=== PATIENT | female | born 1940 ===

== ENCOUNTER → 2020-07-26 13:01 | Outpatient (BNVA) | payer MEDICARE, OTHER, SELFPAY | PROVIDERS: PCP Internal Medicine; Referring Provider Internal Medicine; Visit Provider Nurse Practitioner Family | DX: Z01.810 Encounter for preprocedural cardiovascular examination (principal); I49.8 Other specified cardiac arrhythmias; I10 Essential (primary) hypertension; R00.2 Palpitations; E78.5 Hyperlipidemia, unspecified; R94.31 Abnormal electrocardiogram [ECG] [EKG]; R07.89 Other chest pain; Z86.73 Personal history of transient ischemic attack (TIA), and cerebral infarction without residual deficits | CPT/HCPCS: 99214 ==

== ENCOUNTER → 2020-07-30 10:10 | Outpatient (REF) | payer MEDICARE, OTHER, SELFPAY ==
--- NOTE | 2020-07-30 | NM_ITS ---
Lexiscan Myocardial perfusion study Indication: Preoperative cardiovascular evaluation, hypertension, high lipids Technique: The patient was brought in for a Lexiscan perfusion study on 07/30/2020 and was injected 0.4 mg of Lexiscan intravenously. Within a minute of this injection 25 mCi of sestamibi was given intravenously. Images were obtained using the SPECT gamma camera interlaced with the gating device. Images were obtained in supine position. Resting perfusion study was performed on 07/31/2020. Patient was administered 25 mCi of sestamibi intravenously at rest. Images were then obtained in supine position. Total DLP 64mGy-cm. Images were processed with the software and compared side to side in short axis, horizontal long axis and vertical long axis views. Findings: Raw acquisition was reviewed. The stress perfusion study showed slightly decreased tracer uptake towards the apex and apical inferior wall. However, with CT attenuation correction, this seems to resolve suggesting soft tissue/diaphragmatic attenuation artifact. The gated study shows normal LV systolic function with calculated LVEF of 69%. LV cavity is normal in size. The gated study shows normal wall thickening and contraction of segments. Resting study shows no significant perfusion abnormality. Gating at rest reveals normal wall motion with ejection fraction at 74%. The findings are consistent with no reversible or fixed perfusion abnormality. Impression: 1. Myocardial perfusion imaging study shows normal myocardial perfusion. No evidence of any ischemia or infarction. 2. Gated LVEF is normal. 3. Transient ischemic dilatation not present. EKG component of the test reported separately.
--- NOTE | 2020-07-30 10:33 | CA_ITS ---
Acquisition Time: 2020-07-30 10:41:33 Total Exercise Time: 00:02:00 Test Indications: Pre-Op Evaluation Medications: Protocol: LEXISCAN Max HR: 137 BPM 96% of Pred: 142 BPM Max BP: 142/078 mmHG Max Work Load: 1.0 METS Pharmacological stress test using Lexiscan while sitting and kicking her feet. Reports chest pressure. HR up to 137. Pt took all her medications this morning. EKG without any arrhythmias, Non-diagnostic for ischemia. Nuclear images to follow. Normotensive response to test. Test reviewed with Dr. Patino Referred By: Yudith Walter Overread By: Seth Lam
== END ==
LOC: HO.CARD 10:10
PROVIDERS: PCP Internal Medicine; Visit Provider Nurse Practitioner Family
DX: Z01.810 Encounter for preprocedural cardiovascular examination (principal); R07.89 Other chest pain; I10 Essential (primary) hypertension; E78.5 Hyperlipidemia, unspecified; R94.31 Abnormal electrocardiogram [ECG] [EKG]
CPT/HCPCS: 78452; 93017; A9500; J0280; J2785

== ENCOUNTER → 2020-08-23 10:52 | Outpatient (BNVA) | payer MEDICARE, OTHER, SELFPAY | PROVIDERS: PCP Internal Medicine; Referring Provider Internal Medicine; Visit Provider Nurse Practitioner Family | DX: Z01.810 Encounter for preprocedural cardiovascular examination (principal); R07.89 Other chest pain; I49.8 Other specified cardiac arrhythmias; R00.2 Palpitations; E78.5 Hyperlipidemia, unspecified; I10 Essential (primary) hypertension | CPT/HCPCS: 93005; 99212 ==

== ENCOUNTER → 2020-12-23 09:50 | Outpatient (BNVA) | payer MEDICARE, OTHER, SELFPAY | PROVIDERS: PCP Internal Medicine; Visit Provider Internal Medicine Cardiovascular Disease | DX: I49.8 Other specified cardiac arrhythmias (principal); Z79.899 Other long term (current) drug therapy | CPT/HCPCS: 99212 ==

== ENCOUNTER → 2021-08-15 10:41 | Outpatient (BNVA) | payer MEDICARE, OTHER, SELFPAY | PROVIDERS: PCP Internal Medicine; Visit Provider Hospitalist | DX: K44.9 Diaphragmatic hernia without obstruction or gangrene (principal); J31.0 Chronic rhinitis; J20.9 Acute bronchitis, unspecified; R05.9 Cough, unspecified | CPT/HCPCS: 99202 ==

== ENCOUNTER → 2021-12-29 09:48 | Outpatient (BNVA) | payer MEDICARE, OTHER, SELFPAY | PROVIDERS: PCP Internal Medicine; Visit Provider Internal Medicine Cardiovascular Disease | DX: I49.8 Other specified cardiac arrhythmias (principal) | CPT/HCPCS: 93005; 99212 ==

== ENCOUNTER 2022-04-06 09:43 | Outpatient (REF) | payer MEDICARE, OTHER, SELFPAY ==
[2022-04-06 12:11] LABS: MANUAL DIFF FLAG NO
[2022-04-06 12:33] LABS: Basophils Absolute Auto 0.1 X10*3/uL (0.0-0.2); Basophils Percent Auto 0.7 % (0-2); Eosinophils Absolute Auto 0.1 X10*3/uL (0.0-0.4); Hematocrit 39.4 % (37.0-47.0); Hemoglobin 12.6 g/dl (12.0-16.0); Imm Gran Abs Auto 0.05 X10*3/uL (0.00-0.03); Imm Gran Pct Auto 0.5 % (0.0-0.4); Lymphocytes Absolute Auto 3.1 X10*3/uL (1.2-4.9); Lymphocytes Percent Auto 30.5 % (20-40); Mean Corpuscular Hemoglobin 27.9 pg (27.0-33.0); Mean Corpuscular Volume 87.2 fL (80.0-98.0); Mean Platelet Volume 10.4 fL (9.4-12.3); Monocytes Percent Auto 9.6 % (2-11); Neutrophils Absolute Auto 5.9 x10*3/uL (2.0-8.3); Neutrophils Percent Auto 57.7 % (45-73); Platelet Count 357 X10*3/uL (160-400); Red Blood Count 4.52 X10*6/uL (4.20-5.50); Red Cell Distribution Width 14.5 % (11.0-16.0); White Blood Count 10.3 X10*3/uL (4.8-10.8)
[2022-04-06 12:40] LABS: D Dimer High Sensitivity 266 NG/ML
[2022-04-06 12:58] LABS: Anion Gap 15 (12-20); Blood Urea Nitrogen 13 mg/dL (9-16); Calcium 9.8 mg/dL (8.4-10.2); Carbon Dioxide 26 mmol/L (22-29); Chloride 103 mmol/L (96-108); Estimated Glomerular Filt Rate > 60; Glucose Random 110 mg/dL (60-115); Sodium 140 mmol/L (135-145)
--- NOTE | 2022-04-06 12:58 | PFT_ITS ---
Forced vital capacity 86%, FEV1 90%, [id number] 112%, and MVV 84%. Post bronchodilator therapy there is no change. Total lung capacity 84%. Residual volume 78%. Diffusion capacity 49% CONCLUSION: There is no evidence of obstructive or restrictive pulmonary disorder. Diffusion capacity is markedly decreased. This may be due to pulmonary emphysema or nonpulmonary factors. Clinical correlation is recommended. MD MAYANK Guo/MODL / [id number]
[2022-04-08 09:32] LABS: Myeloperoxidase Antibody <1.0 AI; Proteinase 3 PR3 Antibodies <1.0 AI; Scleroderma 70 Antibody 1.5 POS AI (<1.0 NEG)
== END 2022-04-06 09:44 | disposition home or self-care (01) ==
LOC: HO.RESP 09:43
PROVIDERS: PCP Internal Medicine; Visit Provider Hospitalist
DX: R06.00 Dyspnea, unspecified (principal); R05.9 Cough, unspecified
CPT/HCPCS: 36415; 80048; 85025; 85379; 86021; 86235; 94060; 94727; 94729; 99212

== ENCOUNTER 2022-04-07 13:50 | Outpatient (REF) | payer MEDICARE, OTHER, SELFPAY ==
--- NOTE | ~2022-04-07 | CT_ITS ---
EXAMINATION: CT ANGIOGRAM OF THE CHEST WITH AND WITHOUT CONTRAST (CT PULMONARY ANGIOGRAM FOR PE) CLINICAL INFORMATION: Reason for Exam R78.89 - Finding of other specified substances, not normally found in blood COMPARISON: None TECHNIQUE: Prior to contrast administration, noncontrast localization images were obtained. Subsequently, multidetector volumetric imaging was performed from the thoracic inlet to below the diaphragms following the administration of 65 mL Omnipaque 350 intravenous contrast. No contrast reaction reported Sagittal, coronal, and MIP oblique sagittal reformatted images were obtained on the CT workstation, uploaded to PACS, and reviewed. This CT examination was performed using dose optimization techniques as appropriate, variously including the following: *Automated exposure control *Adjustment of mA and/or kV according to patient size (this includes techniques or standardized protocols for targeted exams where dose is matched to indication/reason for exam; i.e. extremities or head) *Use of iterative reconstruction technique Total exam dose-length product 106 mGy-cm FINDINGS: QUALITY OF STUDY/CONTRAST BOLUS: Satisfactory. PULMONARY ARTERIES: No central or segmental pulmonary emboli. THORACIC AORTA: No aneurysm or dissection. LUNG: There is a 3 mm right lower lobe nodule axial image 413 series 111. The lungs are otherwise clear. PLEURA: No pleural effusion or pneumothorax. MEDIASTINUM: Normal heart size. Mild coronary artery calcification. No pericardial effusion. No hilar or mediastinal lymphadenopathy. No evidence of septal bowing or right heart strain. CHEST WALL/AXILLA: Bilateral breast implants with intracapsular rupture. Small bilateral axillary lymph nodes. No enlarged axillary lymph nodes or chest wall mass. OSSEOUS STRUCTURES: There are degenerative changes of the spine. There is question of a lytic lesion in the right humeral head measuring 1.4 cm versus osteopenia. UPPER ABDOMEN: Unremarkable. No reflux of contrast into the hepatic veins to suggest elevated right heart pressures. CT/CT angio chest PE protocol IMPRESSION: No evidence of pulmonary embolism. Normal heart size. Mild coronary artery calcification. 3 mm right lower lobe nodule. According to the UPDATED 2017 Fleischner Society recommendations, the advised follow-up imaging for less than 6 mm solid nodule: Low risk, no chest CT follow-up and high risk, optional chest CT follow-up in one year. Bilateral breast implants with intracapsular rupture. Question 1.4 cm lucent lesion in the right humeral head versus osteopenia. VTE: negative
[2022-04-07] MEDS: iohexoL 350 MG/ML 100 ML INFUS..BTL IV (14:58)
== END 2022-04-07 13:51 | disposition home or self-care (01) ==
LOC: HO.CT 13:50
PROVIDERS: PCP Internal Medicine; Visit Provider Hospitalist
DX: R78.89 Finding of other specified substances, not normally found in blood (principal); R00.2 Palpitations; R06.00 Dyspnea, unspecified
CPT/HCPCS: 71275; Q9967

== ENCOUNTER → 2022-05-11 09:05 | Outpatient (REF) | payer MEDICARE, OTHER, SELFPAY | LOC: HO.SL 09:05 | PROVIDERS: PCP Physician Assistant Medical; Visit Provider Hospitalist | DX: G47.33 Obstructive sleep apnea (adult) (pediatric) (principal); R06.00 Dyspnea, unspecified | CPT/HCPCS: 95806 ==

== ENCOUNTER → 2022-05-18 09:25 | Outpatient (REF) | payer MEDICARE, OTHER, SELFPAY ==
--- NOTE | 2022-05-18 09:27 | CA_ITS ---
Transthoracic Echocardiogram Patient (Last, First, Middle): Franc Schwartz Lorraine Gender: Female Date of : 1940 Age: 81 Procedure Date: 05/18/2022 Procedure Type: Transthoracic Echocardiogram Location: OP Height: 165.1 cm Weight: 59.88 kg BSA: 1.66 m2 Heart Rate: bpm BP: 117 / 78 mmHg Fax Machine Repairer: RYANN Referring MD: Jamal Chung MD Windshield Wiper Repairer: Cosme Otero MD Symptoms: I27.20 - Pulmonary hypertension, unspecified Study Quality: Adequate/contrast ECG Rhythm: Sinus Conclusions: - 1. Normal LV systolic function with impaired relaxation filling pattern 2. Normal cardiac valvular Doppler 3. Normal RV systolic pressure 4. No gross pericardial effusion Findings Procedure Information Contrast agent, definity, is being given per protocol without apparent complications. Left Ventricle Normal left ventricular size, thickness, and systolic function. The visually estimated ejection fraction is between 65-70%. Spectral Doppler is indicative of an impaired relaxation filling pattern. E/E prime ratio is between 8 and 15 consistent with indeterminate filling pressures. Right Ventricle Normal right ventricular cavity size and systolic function. Atria The left atrium is normal in size. There is lipomatous hypertrophy of the interatrial septum. There is no evidence of interatrial shunt. The right atrium is normal in size. Aortic Valve The aortic valve was not well visualized. There is no aortic valve stenosis. There is no aortic valve regurgitation. Mitral Valve The mitral valve was not well visualized. There is trace mitral valve regurgitation. There is no mitral valve stenosis. Pulmonic Valve The pulmonic valve was not well visualized. Tricuspid Valve Likely normal tricuspid valve structure and function. There is trace tricuspid valve regurgitation. The right ventricular systolic pressure is normal. Normal right atrial pressure. There is no evidence of pulmonary hypertension. Great Vessels All visible segments of the aorta are normal in size. The pulmonary artery was not well visualized. Venous The inferior vena cava is normal in size and collapses greater than 50% with inspiration. Pericardium/Pleural The pericardium was not well visualized. Prior Study Comparison No prior study available for comparison. Measurements 2D Linear Measurements IVSd: 1.07 0.6-0.9/0.6-1.0 cm LVIDd: 3.90 3.9-5.3/4.2-5.9 cm LVIDd Index: 2.35 2.4-3.2/2.2-3.1 cm/m2 LVIDs: 2.58 2.0-3.6 cm LVPWd: 0.92 0.7-1.1 cm LA Diam: 2.90 2.7-3.8/3.0-4.0 cm LAIDs Index: 1.75 1.5-2.3 cm/m2 LV Mass: 151.25 67-162/88-224 g LV Mass Index: 91.12 43-95/49-115 g/m2 LVOT Diam: 2.00 3.0+(-)1.3 cm 2D Systolic Function EF 4C: 72.40 >55% EF 2C: 65.00 >55% EF BiP: 68.10 >55% Mitral Valve MV Pk E: 0.67 MV PK A: 1.15 MV Decel Time: 277.00 E/A: 0.60 E'Lateral: 4.24 E'Medial: 4.57 E/E' Med: 14.60 E/E' Lat: 15.70 PHT: 81.00 MVA PHT: 2.72 Decel [place]: 2.41 Aortic Valve AoV Pk Omega: 1.37 AoV Mn Omega: 0.86 AoV VTI: 0.26 AoV Pk Grad: 8.00 Aov Mn Grad: 3.00 WILL Cont.VTI: 2.53 LVOT LVOT Pk Omega: 1.14 LVOT Mn Omega: 0.72 LVOT VTI: 0.21 LVOT Pk Grad: 5.00 LVOT Mn Grad: 2.00 LVOT Diam: 2.00 LVOT Area: 3.14 Diastolic Function MV Pk E: 0.67 MV Pk A: 1.15 E/A: 0.60 E'Medial: 4.57 E/E' Med: 14.60 E' Laterial: 4.24 E/E' Lat: 15.70 Right Ventricle TAPSE (mm): 19.10 TVS' Omega: 11.10 Tricuspid Valve TR Pk Omega: 2.12 TR Pk Grad: 18.00 RA Press: 3.00 RVSP: 21.00 Great Vessels Aorta Sinus of Valsalva: 3.64 2.0-3.[address] [place]: 2.58 1.7-3.4 cm Ao Asc: 3.50 2.1-3.4 cm Updated in Other Vendor System with Status of Final Cosme Otero MD electronically signed on 05/18/2022 12:42:24 PM with status of Final
== END ==
LOC: HO.CARD 09:25
PROVIDERS: Visit Provider Hospitalist
DX: I27.20 Pulmonary hypertension, unspecified (principal)
CPT/HCPCS: 93306; Q9957

== ENCOUNTER → 2022-05-25 10:54 | Outpatient (REF) | payer MEDICARE, OTHER, SELFPAY ==
--- NOTE | 2022-05-25 10:56 | HM_ITS ---
TEST PERFORMED: Cardiac event monitoring. REQUESTING PHYSICIAN: Dr. Otero. ENROLLMENT PERIOD: 05/25/2022 to 06/24/2022-30 days. INDICATION: Palpitations. FINDINGS: In the above monitoring period, underlying rhythm is sinus. Rates ranged from 74-97 beats per minute. Isolated PACs/PVCs noted. No patient symptoms documented. CONCLUSION: Study shows sinus rhythm, isolated PACs/PVCs. Tirso Patino MD HS/EVASN / [id number]
== END ==
LOC: HO.CARD 10:54
PROVIDERS: Visit Provider Internal Medicine Cardiovascular Disease
DX: R00.2 Palpitations (principal); I49.8 Other specified cardiac arrhythmias
CPT/HCPCS: 93270

== ENCOUNTER → 2022-05-29 10:53 | Outpatient (BNVA) | payer MEDICARE, OTHER, SELFPAY | PROVIDERS: PCP Physician Assistant Medical; Visit Provider Hospitalist | DX: R05.9 Cough, unspecified (principal); J31.0 Chronic rhinitis; K44.9 Diaphragmatic hernia without obstruction or gangrene; R06.00 Dyspnea, unspecified; R91.1 Solitary pulmonary nodule | CPT/HCPCS: 99212 ==

== ENCOUNTER 2022-07-13 14:35 | Outpatient (REF) | payer MEDICARE, OTHER, SELFPAY ==
[2022-07-13 14:52] LABS: MANUAL DIFF FLAG NO
[2022-07-13 15:54] LABS: Basophils Absolute Auto 0.1 X10*3/uL (0.0-0.2); Basophils Percent Auto 0.7 % (0-2); Eosinophils Absolute Auto 0.2 X10*3/uL (0.0-0.4); Hemoglobin 12.5 g/dl (12.0-16.0); Imm Gran Abs Auto 0.05 X10*3/uL (0.00-0.03); Imm Gran Pct Auto 0.6 % (0.0-0.4); Lymphocytes Absolute Auto 3.5 X10*3/uL (1.2-4.9); Lymphocytes Percent Auto 42.5 % (20-40); Mean Corpuscular HGB Conc 31.3 g/dl (31.0-35.0); Mean Corpuscular Hemoglobin 27.8 pg (27.0-33.0); Mean Corpuscular Volume 88.9 fL (80.0-98.0); Mean Platelet Volume 10.9 fL (9.4-12.3); Monocytes Absolute Auto 0.9 X10*3/uL (0.1-1.2); Monocytes Percent Auto 10.5 % (2-11); Neutrophils Absolute Auto 3.6 x10*3/uL (2.0-8.3); Neutrophils Percent Auto 43.7 % (45-73); Platelet Count 234 X10*3/uL (160-400); Red Cell Distribution Width 16.3 % (11.0-16.0); White Blood Count 8.3 X10*3/uL (4.8-10.8)
[2022-07-13 16:16] LABS: Iron 87 mcg/dL (30-160); Percent Iron Saturation 25 % (15-50); Total Iron Binding Capacity 345 mcg/dL (228-428); Unsaturated Iron Binding 258 ug/dL
[2022-07-13 16:35] LABS: Erythrocyte Sedimentation Rate 11 MM/HR (0-20)
[2022-07-13 17:10] LABS: Cortisol Random 1.2 ug/dL
== END 2022-07-13 14:36 | disposition home or self-care (01) ==
LOC: HO.LAB 14:35
PROVIDERS: PCP Physician Assistant Medical; Visit Provider Hospitalist
DX: R05.9 Cough, unspecified (principal); R06.00 Dyspnea, unspecified
CPT/HCPCS: 36415; 82533; 83540; 85025; 85652

== ENCOUNTER → 2022-11-23 10:50 | Outpatient (BNVA) | payer MEDICARE, OTHER, SELFPAY | PROVIDERS: PCP Physician Assistant Medical; Visit Provider Hospitalist | DX: J31.0 Chronic rhinitis (principal); R05.9 Cough, unspecified; R06.00 Dyspnea, unspecified; R91.1 Solitary pulmonary nodule; K44.9 Diaphragmatic hernia without obstruction or gangrene | CPT/HCPCS: 99212 ==

== ENCOUNTER → 2023-02-11 13:19 | Outpatient (BNVA) | payer MEDICARE, OTHER, SELFPAY | PROVIDERS: PCP Physician Assistant Medical; Referring Provider Physician Assistant Medical; Visit Provider Internal Medicine Cardiovascular Disease | DX: I49.8 Other specified cardiac arrhythmias (principal) | CPT/HCPCS: 93005; 99212 ==

== ENCOUNTER 2023-04-27 11:00 | Outpatient (REF) | payer MEDICARE, OTHER, SELFPAY ==
--- NOTE | ~2023-04-27 | CT_ITS ---
EXAMINATION: CT CHEST WITHOUT CONTRAST CLINICAL INFORMATION: Solitary pulmonary nodule COMPARISON: Previous chest CTA March 2022 TECHNIQUE: Multidetector volumetric CT imaging of the chest was done. Axial MIP volume rendering provided. Sagittal and coronal reformatted images were obtained. This CT examination was performed using dose optimization techniques as appropriate, variously including the following: *Automated exposure control *Adjustment of mA and/or kV according to patient size (this includes techniques or standardized protocols for targeted exams where dose is matched to indication/reason for exam; i.e. extremities or head) *Use of iterative reconstruction technique DLP: 139 mGy-cm FINDINGS: LUNGS: 3 mm lateral right lower lobe nodule axial image 366 series 5 is stable. There are clustered small calcifications in the posterior from costophrenic sulcus of the right lower lobe for example axial image 423 series 5 that are stable. Mild biapical pleural and parenchymal scarring. Mild scarring or chronic subsegmental atelectasis in the right middle lobe that is stable. The lungs are otherwise clear. MEDIASTINUM: Tortuous slightly calcified thoracic aorta. Normal heart size. No pericardial effusion. No enlarged hilar or mediastinal lymph nodes. CORONARY ARTERY CALCIFICATION: Mild to moderate PLEURA: There is no pleural effusion. No pleural mass or thickening. AXILLA: No chest wall mass or enlarged axillary lymph nodes. Bilateral breast implants with evidence of intracapsular rupture. UPPER ABDOMEN: Small stone in the upper pole left kidney. OSSEOUS STRUCTURES: Unremarkable. CT/CT chest wo IV con IMPRESSION: Stable small 3 mm noncalcified right lower lobe nodule and clustered calcifications in the right lower lobe. No chest CT imaging follow-up recommended. Fleischner guidelines were followed.
== END 2023-04-27 11:01 | disposition home or self-care (01) ==
LOC: HO.CT 11:00
PROVIDERS: PCP Physician Assistant Medical; Visit Provider Hospitalist
DX: R91.1 Solitary pulmonary nodule (principal)
CPT/HCPCS: 71250

== ENCOUNTER 2023-12-21 12:27 | Outpatient (AMB) | payer MEDICARE, OTHER, SELFPAY ==
--- NOTE | 2023-12-21 12:34 | MHC.OFFVIS ---
Intake Vital Signs 12/21/23 12:35 Height 5 ft 5 in Weight 134 lb 7.712 oz BMI 22.4 BP 120/78 Blood Pressure Location Lt brachial Position Sitting Pulse 82 Intake Visit Reasons: f/up upcoming knee surg Intake Note: Pre-op knee surgery 01/03 feeling ok Major Appliance Assembly Supervisor Required: No Allergies naproxen [From NAPROSYN] Allergy (Unknown, Verified 12/21/23 13:36) GI UPSET Medication List - Last Reconciled 12/21/23 by Cosme Otero MD alprazolam 0.5 mg PO BEDTIME PRN amlodipine 2.5 mg PO DAILY aspirin 81 mg PO DAILY atorvastatin 80 mg PO BEDTIME calcium citrate 200 mg PO BID Lactobac. rhamnosus GG-inulin 10 billion cell -200 mg ([facility]) caps PO metoprolol succinate ER 50 mg PO DAILY mirabegron ER (Myrbetriq) 25 mg PO DAILY omeprazole 20 mg PO DAILY valsartan 40 mg PO BID HPI HPI Comments History of Present Illness Details Merlene comes for follow-up. She is supposed to undergo left knee replacement in near future. This has limited exercise capacity significantly. Two weeks ago she underwent physical therapy and this has remarkably increased her limitations with lot of pain as a result her blood pressure is got up. However blood pressures still less than 150 systolic. Most of the time prior to that a blood pressure were at 120 to 130 systolic range. She does not have any new exertional chest pain or shortness of breath. Denies any lightheadedness, syncope. Continues to exertional shortness of breath which is unchanged. No orthopnea, PND, leg edema. No prolonged palpitations or irregular heartbeat PFSH Medical History Pulmonary nodule Rheumatoid arthritis Hiatal hernia Acute bronchitis with bronchospasm Chronic rhinitis Cough Palpitation POTS (postural orthostatic tachycardia syndrome) HLD (hyperlipidemia) HTN (hypertension) Surgical History Hx of knee surgery Family History Father Sudden cardiac CVD (cardiovascular disease) HTN (hypertension) Mother Diabetes Social History Patient Tobacco Use Status: Never used Tobacco Review of Systems Const Denies chills, Denies fatigue, Denies fever(s), Denies frequent falls, Denies weakness, Denies weight gain and Denies weight loss ENT Denies dizziness Card Denies chest pain, Denies leg edema, Denies lightheadedness, Denies palpitations, Denies dyspnea, Denies dyspnea on exertion, Denies orthopnea and Denies other (loss of consciousness) Resp Denies cough, Denies dyspnea and Denies dyspnea on exertion GI Denies hematochezia and Denies change in stool character Musc Denies abnormal gait, Denies muscle weakness, Denies numbness, Denies radiating pain into limb and Denies tingling Neuro Denies abnormal gait, Denies dizziness, Denies frequent falls, Denies numbness, Denies tingling and Denies weakness Endo Denies fatigue and Denies palpitations Physical Exam Vital Signs: Last Vital Signs Pulse 82 12/21/23 12:35 BP 120/78 12/21/23 12:35 BMI result Body Mass Index 22.4 Const General: cooperative, comfortable, no acute distress, alert and awake Nutritional Appearance: thin and other (Frail elderly woman) Orientation/consciousness: patient oriented x3 Limitations: ambulation with cane Neck Neck: Yes trachea midline, Yes supple and Yes no JVD Chest Chest palpation & inspection: normal inspection of the chest Resp Effort & Inspection: normal respiratory effort Auscultation: clear to auscultation bilaterally Cardio Jugular venous distension: no JVD Palpation: normal PMI Rate: regular rate Rhythm: regular rhythm Heart sounds: S1 normal heart sound present and S2 normal heart sound present Neuro General: patient oriented x3 and no focal motor deficits Extrem General: Yes no clubbing, cyanosis or edema Psych Appearance: grossly normal Office Procedures EKG Details: EKG shows normal sinus rhythm with normal EKG [id number], Complete Assessment & Plan Assessment & Plan (1) Preoperative cardiovascular examination: Code(s): Z01.810 - Encounter for preprocedural cardiovascular examination Plan: Preoperative cardiovascular risk stratification for intermediate risk surgery in this elderly woman with multiple risk factors. She has not had any myocardial perfusion imaging in the recent time. Limited exercise capacity less than 4 Mets. Would suggest a vasodilating myocardial perfusion imaging prior to the surgery to further risk stratify from cardiovascular perspective. She can stop her aspirin as required by orthopedic service. If stress test is within normal limits she is low risk for perioperative cardiovascular morbidity mortality. (2) HTN (hypertension): Code(s): I10 - Essential (primary) hypertension Plan: Labile blood pressure with prior history of postural orthostatic tachycardia syndrome. Blood pressure in our current regimen has been well controlled without any significant episodes of lightheadedness or palpitations. Continue the same. Advised to maintain adequate hydration. Low-salt diet was discussed. A blood pressure elevation currently appears to be related to her pain. This needs to be controlled. Will follow up in the clinic in 1 year's time, sooner p.r.n.. Thank you for allowing me to partake in the care Orders: Orders CA lexiscan stress w delvis 1 Day Z01.810 - Encounter for preprocedural cardiovascular examination Coding Level of Care Code Est Pt Level 4 (24285) Diagnoses Preoperative cardiovascular examination Z01.810 HTN (hypertension) I10 CPT Codes EKG - CPT: 70417-Tmxtqifjzarllskuk, Complete ([id number])
[2023-12-21 12:35] VITALS: BP 120/78; PULSE 82; BMI 22.4
== END 2023-12-21 13:15 | disposition home or self-care (01) ==
PROVIDERS: PCP Physician Assistant Medical; Visit Provider Internal Medicine Cardiovascular Disease
DX: I10 Essential (primary) hypertension (principal); Z01.810 Encounter for preprocedural cardiovascular examination
CPT/HCPCS: 93010; 99213

== ENCOUNTER → 2023-12-21 12:27 | Outpatient (BNVA) | payer MEDICARE, OTHER, SELFPAY | PROVIDERS: PCP Physician Assistant Medical; Visit Provider Internal Medicine Cardiovascular Disease | DX: R05.3 Chronic cough (principal); R06.09 Other forms of dyspnea; J31.0 Chronic rhinitis; K44.9 Diaphragmatic hernia without obstruction or gangrene; R91.1 Solitary pulmonary nodule | CPT/HCPCS: 93005; 99212 ==

== ENCOUNTER 2023-12-21 13:27 | Outpatient (AMB) | payer MEDICARE, OTHER, SELFPAY ==
--- NOTE | 2023-12-21 13:34 | MHC.OFFVIS ---
Intake Vital Signs 12/21/23 13:35 Height 5 ft 5 in Weight 132 lb BMI 22.0 Pulse 89 Pulse Source Pulse Oximeter Pulse Oximetry (%) 95 Oxygen Delivery Method Room Air Intake Visit Reasons: dyspnea Supervisor Filling And Packing Required: No Allergies naproxen [From NAPROSYN] Allergy (Unknown, Verified 12/21/23 13:36) GI UPSET HPI HPI Comments History of Present Illness Details The patient is a 83-year-old woman with a known history of rheumatoid arthritis in addition to hiatal hernia who apparently this summer started developing worsening chest congestion and chest tightness. She was evaluated multiple times. She was tested negative for COVID. She required cortical steroid therapy. Ultimately also required antibiotics. After several months of dealing with this her symptoms are now improved and she is back to her baseline. It was positive sick contacts of the time. Denies any fevers or chills. Based on the worsening symptoms it was recommended that she follow-up with Pulmonary. Currently she is doing well she is not using any respiratory medicines. 04/06/2022 the patient is here for a pulmonary follow-up visit. She continues to have significant dyspnea with minimal activity. Moderate severity. Very limiting as far as her ability to function. She has noticed increased heart rate. We did go for brief 6 minute walk test and she maintain a pulse ox of 98%. However, heart rate went up to 115 and the patient was visibly dyspneic with a dyspnea score of 5 at a time. Patient did rest and her symptoms improved. Her last echocardiogram was approximately 2 years ago. She does have a history of connective tissue diseases. Therefore pulmonary vascular conditions need to be considered. The patient did undergo pulmonary function studies also demonstrating a decrease in her diffusing capacity suggesting underlying pulmonary vascular conditions and or parenchymal disease. The patient had a low normal total lung capacity. She also has evidence of snoring documented by has been. Also apneic episodes. She does have some fatigue and daytime drowsiness with an Rough And Ready score elevated at 12 over 24. I will request a home sleep study at this time. In addition to that we will do blood work in addition to a D-dimer to assess her risk for thromboembolic disease. indeed her D-dimer came back positive therefore will go ahead and order a CTA to rule out the possibility of thromboembolic disease. The patient also has had the increased heart rate issue. I did speak to her cardiology is briefly and will go ahead and order an echocardiogram at this time. 05/29/2022 the patient is here for a pulmonary follow-up visit. She is feeling better. Still has minimal dyspnea with exertion. We did review her CTA. She has small subcentimeter pulmonary nodule that will need follow-up. Otherwise no evidence of any thromboembolic disease. No other parenchymal disease. Patient also had a sleep study demonstrating no evidence of any sleep apnea. Therefore no clear explanation for the decrease in the diffusing capacity. Hemoglobin stable. The patient does have some diastolic dysfunction. She is already on cardioprotective medications. No further medical interventions at this time will have her follow-up in a year's time with PFTs and a CT scan. If she has any issues prior to that she is to call the office for an earlier assessment. 11/23/2022 the patient is here for a pulmonary follow-up visit. The patient continues to do well. She has not had to use her maintenance inhaler or any rescue medication. Denies any significant shortness of breath. The patient did have a CT scan of the chest with the summer in March 2022 demonstrating small subcentimeter pulmonary nodules. The plan will be to repeat the CT scan around a year from her last 1. the patient does continue the Humira with good response without any significant pulmonary manifestations. She continues with reflux diet and also on the PPI for her known hiatal hernia and reflux disease. Initial montero the patient feels a lot better after she was given vitamin B12. she will follow-up with the [facility] regarding the low cortisol levels. And she also continue to follow closely with rheumatology. 12/21/2023 the patient is here for a pulmonary follow-up visit. Overall the patient has been doing fairly well. She continues have a cough. The cough is moderate severe. tends to be intermittent and not productive. She has been evaluated by multiple specialties including ENT and GI. She does have significant reflux disease. She is already on a PPI. We did talk about the importance of the reflux diet and also sleeping with the head of bed elevated. She is going to look into bed risers for the head of the bed. She also needs to be careful with the mid night snacks. She should keep them to minimum. She did have a CT scan of chest which we personally reviewed back over the summer 2022. She does have pulmonary nodules. She does have a high risk history of cancer. Her brother recently of lung cancer so therefore she is very concerned. Will plan to repeat her CT scan again in 6 months. If the patient develops any worsening symptoms she will call for an earlier assessment. Otherwise will provide her with the benzonatate cough medication that she can try as needed. [facility] Medical History Pulmonary nodule Rheumatoid arthritis Hiatal hernia Acute bronchitis with bronchospasm Chronic rhinitis Cough Palpitation POTS (postural orthostatic tachycardia syndrome) HLD (hyperlipidemia) HTN (hypertension) Surgical History Hx of knee surgery Family History Father Sudden cardiac CVD (cardiovascular disease) HTN (hypertension) Mother Diabetes Social History Patient Tobacco Use Status: Never used Tobacco Review of Systems Const Denies chills, Denies fatigue, Denies fever(s), Denies frequent falls, Denies snoring, Denies weakness, Denies weight gain and Denies weight loss ENT Reports vertigo and Denies dizziness Card Denies chest pain, Denies leg edema, Denies lightheadedness, Reports palpitations, Denies dyspnea, Reports dyspnea on exertion, Denies orthopnea and Denies other (loss of consciousness) Resp Reports cough, Denies dyspnea, Reports dyspnea on exertion and Denies snoring GI Denies hematochezia and Denies change in stool character Musc Denies abnormal gait, Denies muscle weakness, Denies numbness, Denies radiating pain into limb and Denies tingling Neuro Denies abnormal gait, Reports vertigo, Denies dizziness, Denies frequent falls, Denies numbness, Denies tingling and Denies weakness Endo Denies fatigue and Reports palpitations Physical Exam Vital Signs: Last Vital Signs Pulse 89 12/21/23 13:35 Pulse Ox 95 12/21/23 13:35 Oxygen Delivery Method Room Air 12/21/23 13:35 BMI result Body Mass Index 22.0 Const General: cooperative, comfortable, no acute distress, alert and awake Nutritional Appearance: thin and other (Frail elderly woman) Orientation/consciousness: patient oriented x3 Limitations: ambulation with cane Neck Neck: Yes trachea midline, Yes supple and Yes no JVD Chest Chest palpation & inspection: normal inspection of the chest Resp Effort & Inspection: normal respiratory effort Auscultation: clear to auscultation bilaterally Cardio Jugular venous distension: no JVD Palpation: normal PMI Rate: regular rate Rhythm: regular rhythm Heart sounds: S1 normal heart sound present and S2 normal heart sound present Neuro General: patient oriented x3 and no focal motor deficits Extrem General: Yes no clubbing, cyanosis or edema Psych Appearance: grossly normal Results Reviewed Results Reviewed: [address] [address] [address] Scan Report Signed Patient: Franc Schwartz MR#: [id number] : 1940 Acct:[id number] Age/Sex: 82 / F ADM Date: 04/27/23 Loc: HO.CT Attending Dr: Jamla Chung MD Ordering Physician: Jamal Chung MD Date of Service: 04/27/23 Procedure(s): CT chest wo IV con Accession Number(s): [id number] cc: Jamal Chung MD; Pilar Iglesias~ EXAMINATION: CT CHEST WITHOUT CONTRAST CLINICAL INFORMATION: Solitary pulmonary nodule COMPARISON: Previous chest CTA March 2022 TECHNIQUE: Multidetector volumetric CT imaging of the chest was done. Axial MIP volume rendering provided. Sagittal and coronal reformatted images were obtained. This CT examination was performed using dose optimization techniques as appropriate, variously including the following: *Automated exposure control *Adjustment of mA and/or kV according to patient size (this includes techniques or standardized protocols for targeted exams where dose is matched to indication/reason for exam; i.e. extremities or head) *Use of iterative reconstruction technique DLP: 139 mGy-cm FINDINGS: LUNGS: 3 mm lateral right lower lobe nodule axial image 366 series 5 is stable. There are clustered small calcifications in the posterior from costophrenic sulcus of the right lower lobe for example axial image 423 series 5 that are stable. Mild biapical pleural and parenchymal scarring. Mild scarring or chronic subsegmental atelectasis in the right middle lobe that is stable. The lungs are otherwise clear. MEDIASTINUM: Tortuous slightly calcified thoracic aorta. Normal heart size. No pericardial effusion. No enlarged hilar or mediastinal lymph nodes. CORONARY ARTERY CALCIFICATION: Mild to moderate PLEURA: There is no pleural effusion. No pleural mass or thickening. AXILLA: No chest wall mass or enlarged axillary lymph nodes. Bilateral breast implants with evidence of intracapsular rupture. UPPER ABDOMEN: Small stone in the upper pole left kidney. OSSEOUS STRUCTURES: Unremarkable. CT/CT chest wo IV con IMPRESSION: Stable small 3 mm noncalcified right lower lobe nodule and clustered calcifications in the right lower lobe. No chest CT imaging follow-up recommended. Fleischner guidelines were followed. Dictated By: Tami Veras MD Signed By: <Electronically signed by Tami Veras MD in OV> 05/11/23 1049 DD/ 1125 TD/TT: Smasher: AMINA Assessment & Plan Assessment & Plan (1) Cough: Code(s): R05.9 - Cough, unspecified Qualifiers: Cough type: chronic Qualified Code(s): R05.3 - Chronic cough Plan: Multifactorial: reflux, post nasal drip. RA may result in follicular bronchiolitis also resulting in on going respiratory symptoms. (2) Chronic rhinitis: Code(s): J31.0 - Chronic rhinitis (3) Hiatal hernia: Code(s): K44.9 - Diaphragmatic hernia without obstruction or gangrene (4) Dyspnea: Comment: better Code(s): R06.00 - Dyspnea, unspecified Qualifiers: Dyspnea type: dyspnea on exertion Qualified Code(s): R06.09 - Other forms of dyspnea (5) Pulmonary nodule: Code(s): R91.1 - Solitary pulmonary nodule Plan STACEY as needed reflux diet sleep with HOB elevated CT chest 6 months F/U 6 months Orders: Orders CT chest wo IV con 6 Months R91.1 - Solitary pulmonary nodule Medications: New benzonatate 200 mg PO BID 30 days PRN 60 caps 0RF cough R91.1 - Solitary pulmonary nodule Coding Level of Care Code Est Pt Level 4 (20810) Diagnoses Chronic cough R05.3 Cough type: chronic Chronic rhinitis J31.0 Hiatal hernia K44.9 Dyspnea on exertion R06.09 Dyspnea type: dyspnea on exertion Pulmonary nodule R91.1 Time Spent (min) 17
[2023-12-21 13:35] VITALS: PULSE 89; O2SAT 95; BMI 22.0
== END 2023-12-21 14:04 | disposition home or self-care (01) ==
PROVIDERS: PCP Physician Assistant Medical; Visit Provider Hospitalist
DX: R05.3 Chronic cough (principal); J31.0 Chronic rhinitis; K44.9 Diaphragmatic hernia without obstruction or gangrene; R06.09 Other forms of dyspnea; R91.1 Solitary pulmonary nodule
CPT/HCPCS: 99214

== ENCOUNTER → 2023-12-24 09:15 | Outpatient (REF) | payer MEDICARE, OTHER, SELFPAY ==
--- NOTE | ~2023-12-24 | NM_ITS ---
Myocardial perfusion study Indication: Preoperative cardiovascular risk stratification Technique: The patient was brought in for a Lexiscan perfusion study on 12/24/2023. Patient performed low-level exercise and was injected 0.4 mg of Lexiscan intravenously. Within a minute of injection, 25 mCi of sestamibi was given intravenously. Images were obtained using the SPECT gamma camera interlaced with the gating device. Images were obtained in supine position. Resting perfusion study was performed on 12/27/2023. Patient was administered 25 mCi of sestamibi intravenously at rest. Images were then obtained in supine position. Images obtained with and without CT attenuation. Total DLP 136 mGy-cm. Images were processed with the software and compared side to side in short axis, horizontal long axis and vertical long axis views. Findings: The stress perfusion study showed non attenuated images show some thinning at the apex of the LV myocardium otherwise normal uptake in all other segments. Attenuation corrected images show normal uptake in all segments of LV myocardium. There is suggestion of the left ventricle hypertrophy. The gated study shows normal LV systolic function with calculated LVEF of 74%. LV cavity is normal in size. The gated study shows normal systolic wall thickening and contraction of segments. Resting study shows no change in perfusion pattern compared to stress perfusion study. Gating at rest reveals normal systolic wall motion with ejection fraction at greater than 70%. The findings are consistent with normal myocardial perfusion. NM/NM delvis perf SPECT rest & str Impression: 1. Myocardial perfusion imaging study shows normal myocardial perfusion 2. Gated LVEF is 74% 3. Transient ischemic dilatation not present EKG is nondiagnostic for ischemia
--- NOTE | 2023-12-24 09:17 | CA_ITS ---
Acquisition Time: 2023-12-24 09:27:53 Total Exercise Time: 00:02:00 Test Indications: PRE-OP Medications: See chart Protocol: LEXISCAN Max HR: 126 BPM 91% of Pred: 138 BPM Max BP: 150/072 mmHG Max Work Load: 1.0 METS Pharmacological stress test with Lexiscan injection while sitting and kicking without anginal symptoms, with isolated PACs, with normotensive response to injection, wiith nondiagnoisitic EKGs. Aminophylline 75mg IVP given to reverse Lexiscan. Nuclear images pending. Test reviewed with Dr. Barker. Referred By: Cosme Otero Overread By: Anamaria Boucher
== END ==
LOC: HO.CARD 09:15
PROVIDERS: PCP Physician Assistant Medical; Visit Provider Internal Medicine Cardiovascular Disease
DX: Z01.810 Encounter for preprocedural cardiovascular examination (principal)
CPT/HCPCS: 78452; 93017; A9500; J0280; J2785

== ENCOUNTER → 2023-12-24 09:17 | Outpatient (BNV) | payer MEDICARE, OTHER, SELFPAY | PROVIDERS: PCP Physician Assistant Medical; Visit Provider Nurse Practitioner | DX: I49.1 Atrial premature depolarization (principal); Z01.810 Encounter for preprocedural cardiovascular examination | CPT/HCPCS: 78452; 93016; 93018 ==

== ENCOUNTER 2024-06-22 10:14 | Outpatient (REF) | payer MEDICARE, OTHER, SELFPAY ==
--- NOTE | ~2024-06-22 | CT_ITS ---
EXAMINATION: CT CHEST WITHOUT CONTRAST CLINICAL INFORMATION: Solitary pulmonary nodule COMPARISON: CT dated April 27, 2023. TECHNIQUE: Multidetector volumetric CT imaging of the chest was done. Axial MIP volume rendering provided. Sagittal and coronal reformatted images were obtained. This CT examination was performed using dose optimization techniques as appropriate, variously including the following: *Automated exposure control *Adjustment of mA and/or kV according to patient size (this includes techniques or standardized protocols for targeted exams where dose is matched to indication/reason for exam; i.e. extremities or head) *Use of iterative reconstruction technique DLP: 127 mGy-cm FINDINGS: Submitted for interpretation on September 01, 2024. LUNGS: There is a 2 mm noncalcified pulmonary nodule, right upper lobe best seen on the coronal and sagittal reformats. Subpleural nodules measuring less than 3 mm bilaterally. Subpleural calcifications in the right lung base. Subsegmental atelectasis versus scarring, right middle lobe. No consolidation. No bronchiectasis. No honeycombing. Respiratory airways is patent. MEDIASTINUM: Calcified plaques throughout the thoracic aorta and its main branches. Nonspecific prominent with a fatty hilum lymph nodes. No pericardial effusion. Calcified plaque in the mitral valve and aortic valve.. CORONARY ARTERY CALCIFICATION: Calcified plaques. PLEURA: No pleural effusion. No pneumothorax. AXILLA: Prominent axillary lymph nodes and axillary prolongation of the breast bilaterally. UPPER ABDOMEN: Hiatal hernia. Small size. Calcified plaques in the abdominal aorta wall and the origin of the main renal arteries. OSSEOUS STRUCTURES: Multilevel spondylosis without acute fracture or listhesis. Bilateral breast implants with linear attenuation following a linguini sign residing within the prosthesis more conspicuous on the right side CT/CT chest wo IV con IMPRESSION: Nonspecific 2 mm pulmonary nodule right upper lobe. Consider Intra-breast prosthesis ruptured Atherosclerosis and coronary artery disease. Fleischner guidelines were followed. Electronically signed by: David Lyman MD 09/01/2024 11:46 AM ISA
== END 2024-06-22 10:15 | disposition home or self-care (01) ==
LOC: HO.CT 10:14
PROVIDERS: PCP Nurse Practitioner; Visit Provider Hospitalist
DX: R91.1 Solitary pulmonary nodule (principal)
CPT/HCPCS: 71250

== ENCOUNTER → 2024-06-22 10:16 | Outpatient (BNV) | payer MEDICARE, OTHER, SELFPAY | PROVIDERS: PCP Nurse Practitioner; Visit Provider Radiology Diagnostic Radiology | DX: R91.1 Solitary pulmonary nodule (principal) | CPT/HCPCS: 71250 ==

== ENCOUNTER 2024-08-01 13:42 | Outpatient (AMB) | payer MEDICARE, OTHER, SELFPAY ==
[2024-08-01 13:55] VITALS: BP 128/70; PULSE 85; O2SAT 96; BMI 22.0
--- NOTE | 2024-08-01 13:55 | MHC.OFFVIS ---
Vital Signs 08/01/24 13:55 Height 5 ft 5 in Weight 132 lb 7.965 oz BMI 22.0 BP 128/70 Blood Pressure Location Lt brachial Position Sitting Pulse 85 Pulse Source Pulse Oximeter Pulse Oximetry (%) 96 Oxygen Delivery Method Room Air Intake Visit Reasons: dyspnea [address] Service Required: No Allergies naproxen [From NAPROSYN] Allergy (Unknown, Verified 08/01/24 13:57) GI UPSET HPI Comments Details: The patient is a 83-year-old woman with a known history of rheumatoid arthritis in addition to hiatal hernia who apparently this summer started developing worsening chest congestion and chest tightness. She was evaluated multiple times. She was tested negative for COVID. She required cortical steroid therapy. Ultimately also required antibiotics. After several months of dealing with this her symptoms are now improved and she is back to her baseline. It was positive sick contacts of the time. Denies any fevers or chills. Based on the worsening symptoms it was recommended that she follow-up with Pulmonary. Currently she is doing well she is not using any respiratory medicines. 04/06/2022 the patient is here for a pulmonary follow-up visit. She continues to have significant dyspnea with minimal activity. Moderate severity. Very limiting as far as her ability to function. She has noticed increased heart rate. We did go for brief 6 minute walk test and she maintain a pulse ox of 98%. However, heart rate went up to 115 and the patient was visibly dyspneic with a dyspnea score of 5 at a time. Patient did rest and her symptoms improved. Her last echocardiogram was approximately 2 years ago. She does have a history of connective tissue diseases. Therefore pulmonary vascular conditions need to be considered. The patient did undergo pulmonary function studies also demonstrating a decrease in her diffusing capacity suggesting underlying pulmonary vascular conditions and or parenchymal disease. The patient had a low normal total lung capacity. She also has evidence of snoring documented by has been. Also apneic episodes. She does have some fatigue and daytime drowsiness with an Morral score elevated at 12 over 24. I will request a home sleep study at this time. In addition to that we will do blood work in addition to a D-dimer to assess her risk for thromboembolic disease. indeed her D-dimer came back positive therefore will go ahead and order a CTA to rule out the possibility of thromboembolic disease. The patient also has had the increased heart rate issue. I did speak to her cardiology is briefly and will go ahead and order an echocardiogram at this time. 05/29/2022 the patient is here for a pulmonary follow-up visit. She is feeling better. Still has minimal dyspnea with exertion. We did review her CTA. She has small subcentimeter pulmonary nodule that will need follow-up. Otherwise no evidence of any thromboembolic disease. No other parenchymal disease. Patient also had a sleep study demonstrating no evidence of any sleep apnea. Therefore no clear explanation for the decrease in the diffusing capacity. Hemoglobin stable. The patient does have some diastolic dysfunction. She is already on cardioprotective medications. No further medical interventions at this time will have her follow-up in a year's time with PFTs and a CT scan. If she has any issues prior to that she is to call the office for an earlier assessment. 11/23/2022 the patient is here for a pulmonary follow-up visit. The patient continues to do well. She has not had to use her maintenance inhaler or any rescue medication. Denies any significant shortness of breath. The patient did have a CT scan of the chest with the summer in March 2022 demonstrating small subcentimeter pulmonary nodules. The plan will be to repeat the CT scan around a year from her last 1. the patient does continue the Humira with good response without any significant pulmonary manifestations. She continues with reflux diet and also on the PPI for her known hiatal hernia and reflux disease. Initial montero the patient feels a lot better after she was given vitamin B12. she will follow-up with the [facility] regarding the low cortisol levels. And she also continue to follow closely with rheumatology. 12/21/2023 the patient is here for a pulmonary follow-up visit. Overall the patient has been doing fairly well. She continues have a cough. The cough is moderate severe. tends to be intermittent and not productive. She has been evaluated by multiple specialties including ENT and GI. She does have significant reflux disease. She is already on a PPI. We did talk about the importance of the reflux diet and also sleeping with the head of bed elevated. She is going to look into bed risers for the head of the bed. She also needs to be careful with the mid night snacks. She should keep them to minimum. She did have a CT scan of chest which we personally reviewed back over the summer 2022. She does have pulmonary nodules. She does have a high risk history of cancer. Her brother recently of lung cancer so therefore she is very concerned. Will plan to repeat her CT scan again in 6 months. If the patient develops any worsening symptoms she will call for an earlier assessment. Otherwise will provide her with the benzonatate cough medication that she can try as needed. 08/01/2024 the patient is here for a pulmonary follow-up visit. Overall she is doing well from a respiratory status. The patient did have a recent CT scan of the chest which we personally reviewed. Pulmonary nodules appear to be stable. Will follow-up in a year's time. In the meantime she does complaint of cough and hoarseness. She does have underlying reflux disease. The patient does have a hiatal hernia. Explained to her the issues with the constant reflux disease affecting her pharynx and also laryngeal penetration. The patient still is on a PPI. She has not followed the reflux recommendations however. I did recommend she sleep with the head of elevated and time minimize eating close to the bedtime. The patient already had an ENT evaluation with laryngoscopy demonstrating no significant findings. She also has a postnasal drip with some cobblestoning and she does have a nasal spray that she has use. if the symptoms persist patient can always call and we can also make a referral again to ENT. In the meantime her CT scan is reassuring without any significant abnormalities noted, although, We are still waiting for the final read. [facility] Medical History Pulmonary nodule Rheumatoid arthritis Hiatal hernia Acute bronchitis with bronchospasm Chronic rhinitis Cough Palpitation POTS (postural orthostatic tachycardia syndrome) HLD (hyperlipidemia) HTN (hypertension) Surgical History Hx of knee surgery Family History Father Sudden cardiac CVD (cardiovascular disease) HTN (hypertension) Mother Diabetes Social History Patient Tobacco Use Status: Never used Tobacco Review of Systems Const Denies chills, Denies fatigue, Denies fever(s), Denies frequent falls, Denies snoring, Denies weakness, Denies weight gain and Denies weight loss ENT Reports change in voice, Reports dysphagia, Reports vertigo, Denies dizziness, Reports hoarseness and Reports nasal congestion Card Denies chest pain, Denies leg edema, Denies lightheadedness, Reports palpitations, Denies dyspnea, Reports dyspnea on exertion, Denies orthopnea and Denies other (loss of consciousness) Resp Reports cough, Denies dyspnea, Reports dyspnea on exertion and Denies snoring GI Denies hematochezia, Denies change in stool character, Reports dysphagia and Reports dyspepsia Musc Denies abnormal gait, Denies muscle weakness, Denies numbness, Denies radiating pain into limb and Denies tingling Neuro Denies abnormal gait, Reports vertigo, Denies dizziness, Denies frequent falls, Denies numbness, Denies tingling and Denies weakness Endo Denies fatigue and Reports palpitations Physical Exam Vital Signs: Last Vital Signs Pulse 85 08/01/24 13:55 BP 128/70 08/01/24 13:55 Pulse Ox 96 08/01/24 13:55 Oxygen Delivery Method Room Air 08/01/24 13:55 BMI result Body Mass Index 22.0 Const General: cooperative, comfortable, no acute distress, alert and awake Nutritional Appearance: thin and other (Frail elderly woman) Orientation/consciousness: patient oriented x3 Limitations: ambulation with cane Neck Neck: Yes trachea midline, Yes supple and Yes no JVD Chest Chest palpation & inspection: normal inspection of the chest Resp Effort & Inspection: normal respiratory effort Auscultation: clear to auscultation bilaterally Cardio Jugular venous distension: no JVD Palpation: normal PMI Rate: regular rate Rhythm: regular rhythm Heart sounds: S1 normal heart sound present and S2 normal heart sound present Neuro General: patient oriented x3 and no focal motor deficits Extrem General: Yes no clubbing, cyanosis or edema Psych Appearance: grossly normal Assessment & Plan Assessment & Plan (1) Cough: Code(s): R05.9 - Cough, unspecified Category: Medical Qualifiers: Cough type: chronic Qualified Code(s): R05.3 - Chronic cough Plan: Multifactorial: reflux, post nasal drip. RA may result in follicular bronchiolitis also resulting in on going respiratory symptoms. (2) Chronic rhinitis: Code(s): J31.0 - Chronic rhinitis Category: Medical (3) Hiatal hernia: Code(s): K44.9 - Diaphragmatic hernia without obstruction or gangrene Category: Medical (4) Dyspnea: Comment: better Code(s): R06.00 - Dyspnea, unspecified Category: Medical Qualifiers: Dyspnea type: dyspnea on exertion Qualified Code(s): R06.09 - Other forms of dyspnea (5) Pulmonary nodule: Code(s): R91.1 - Solitary pulmonary nodule Category: Medical Plan STACEY as needed reflux diet sleep with HOB elevated CT chest 12 months Barium swallow at [facility] F/U 12 months Orders: Orders [place] barium swallow Today K21.9 - Gastro-esophageal reflux disease without esophagitis CT chest wo IV con 1 Year R91.1 - Solitary pulmonary nodule Coding Level of Care Code Est Pt Level 4 (49345) Diagnoses Chronic cough R05.3 Cough type: chronic Chronic rhinitis J31.0 Hiatal hernia K44.9 Dyspnea on exertion R06.09 Dyspnea type: dyspnea on exertion Pulmonary nodule R91.1 Time Spent (min) 17
== END 2024-08-01 14:26 | disposition home or self-care (01) ==
PROVIDERS: PCP Physician Assistant Medical; Visit Provider Hospitalist
DX: R05.3 Chronic cough (principal); J31.0 Chronic rhinitis; K44.9 Diaphragmatic hernia without obstruction or gangrene; R06.09 Other forms of dyspnea; R91.1 Solitary pulmonary nodule
CPT/HCPCS: 99214

== ENCOUNTER → 2024-08-01 13:42 | Outpatient (BNVA) | payer MEDICARE, OTHER, SELFPAY | PROVIDERS: PCP Physician Assistant Medical; Visit Provider Hospitalist | DX: R06.09 Other forms of dyspnea (principal); R05.3 Chronic cough; R91.1 Solitary pulmonary nodule; J31.0 Chronic rhinitis; K44.9 Diaphragmatic hernia without obstruction or gangrene | CPT/HCPCS: 99212 ==

== ENCOUNTER 2024-11-07 13:42 | Outpatient (REF) | payer MEDICARE, OTHER, SELFPAY ==
--- OUTSIDE RECORDS SUMMARY | 2024-11-07 15:36 | XMS_ITS | Clinical Summary ---
Author Organization [facility] Address [address] [place] [address] Phone Care Team Providers Care Stroboscope Operator Name Role Phone Juan Stone NP Primary Care Provider [phone] Encounters Date Type Department Care Team Description 09/20/2024 7:39 AM EST - 09/20/2024 11:59 PM EST Hospital Encounter [facility] Xray [address] [place] [id number] GERD (gastroesophageal reflux disease) Discharge Disposition: Home or Self Care from Last 3 Months Social History Tobacco Use Types Packs/Day Years Used Date Smoking Tobacco: Never Assessed Sex and Gender Information Value Date Recorded Sex Assigned at Not on file Gender Identity Not on file Sexual Orientation Not on file Job Start Date Occupation Industry Not on file Not on file Not on file Plan of Treatment Health Maintenance Due Date Last Done Comments COVID-19 Vaccine (#1) 1945 Zoster Vaccines (1 of 2) 1991 Pneumococcal Vaccine: 65+ Years (1 of 1 - PCV) 2006 RSV Immunization Patients 60 + Years Old (1 - 1-dose 75+ series) 2016 DTaP,Tdap,and Td Vaccines (2 - Td or Tdap) 01/19/2021 01/19/2011 Cholesterol Screening (Lipid Panel) 09/20/2022 Depression Screening 09/20/2022 Falls Risk Assessment 09/20/2022 Osteoporosis Screening (Bone Density Screening) 09/20/2022 Social Influencers of Health Screening 09/20/2022 Influenza Vaccine (#1) 2024 , 07/22/2018, 08/10/2017 Hypertension/CHF/CAD Annual BMP Blood Test 09/12/2025 09/12/2024, 02/15/2024, 09/27/2023 Hepatitis A Vaccines Aged Out 10/01/2011, 01/19/2011 No longer eligible based on patient's age to complete this topic HIB Vaccines Aged Out No longer eligi ble based on patient's age to complete this topic HPV Vaccines Aged Out No longer eligi ble based on patient's age to complete this topic Hepatitis B Vaccines Aged Out No long er eligible based on patient's age to complete this topic IPV Vaccines Aged Out No longer eligi ble based on patient's age to complete this topic MMR Vaccines Aged Out No longer eligi ble based on patient's age to complete this topic Meningococcal ACWY Vaccine Aged Out N o longer eligible based on patient's age to complete this topic RSV Immunization Patients Under 20 months Aged Out No longer eligible b ased on patient's age to complete this topic Varicella Vaccines Aged Out No longer eligible based on patient's age to complete this topic Procedures Procedure Name Priority Date/Time Associated Diagnosis Comments XR ESOPHAGRAM Routine 09/20/2024 8:43 AM EST GERD (gastroesophageal reflux disease) from Last 3 Months Results * XR Esophagram (09/20/2024 8:43 AM EST) Anatomical Region Laterality Modality Head and Neck Radiographic Amee ging 09/20/2024 10:4 4 AM EST Impressions 09/20/2024 11:10 AM EST Normal double contrast esophagram exam. -------- FINAL REPORT -------- Dictated By: Meenakshi Montgomery Dictated Date: 09/20/2024 10:44 ET Assigned Physician: Surjit Iqbal Reviewed and Electronically Signed By: Surjit Iqbal Signed Date: 09/20/2024 11:10 ET Workstation ID: [id number] Transcribed By: Self Edit Transcribed Date: 09/20/2024 10:47 ET Resident/PA/HUMAN PERFORMANCE CONSULTANT: Meenakshi Montgomery Narrative 09/20/2024 11:10 AM EST FINDINGS: Double contrast esophagram performed. COMPARISON: Upper GI July 2021 HISTORY: Patient is a 83-year-old female with history of dysphagia, GERD. Trademark Attorney radiographs: 1 view chest radiograph demonstrates cardiac and mediastinal borders within normal limits. Lungs are clear bilaterally. Costophrenic angles are sharp. Aortic knob is calcified. Effervescent crystals were administered orally. Thick and thin barium were administered orally under fluoroscopic control. Pharyngoesophagram: Rapid sequence imaging of the hypopharynx during swallowing demonstrates prompt initiation of swallowing. There is normal soft palate elevation and normal epiglottic motion. There is no laryngeal penetration or meghann aspiration. There is no residual in the vallecula nor in the piriform sinuses. Thoracic esophagus: Mild esophageal dysmotility, likely age-appropriate. Normal distensibility and mucosal pattern without evidence of ulceration, stricture or mass formation. Hiatal hernia: Small axial hiatal hernia seen on prior imaging not appreciated on today's exam. Reflux: Unable to elicit 13mm Barium pill: Swallowed without difficulty. Prompt passage of pill from the esophagus into the stomach. DAP: 3.38 Gycm^2 Exam performed and dictated by: Meenakshi Montgomery PA-C Supervising physician: Surjit Iqbal MD Procedure Note Surjit Iqbal MD - 09/20/2024 FINDINGS: Double contrast esophagram performed. COMPARISON: Upper GI July 2021 HISTORY: Patient is a 83-year-old female with history of dysphagia,GERD. Trademark Attorney radiographs: 1 view chest radiograph demonstrates cardiac andmediastinal borders within normal limits. Lungs are clear bilaterally.Costophrenic angles are sharp. Aortic knob is calcified. Effervescent crystals were administered orally. Thick and thin barium wereadministered orally under fluoroscopic control. Pharyngoesophagram: Rapid sequence imaging of the hypopharynx duringswallowing demonstrates prompt initiation of swallowing. There is normalsoft palate elevation and normal epiglottic motion. There is no laryngealpenetration or meghann aspiration. There is no residual in the vallecula norin the piriform sinuses. Thoracic esophagus: Mild esophageal dysmotility, likely age-appropriate.Normal distensibility and mucosal pattern without evidence of ulceration,stricture or mass formation. Hiatal hernia: Small axial hiatal hernia seen on prior imaging notappreciated on today's exam. Reflux: Unable to elicit 13mm Barium pill: Swallowed without difficulty. Prompt passage of pillfrom the esophagus into the stomach. DAP: 3.38 Gycm^2 Exam performed and dictated by: Meenakshi Montgomery PA-C Supervising physician: Surjit Iqbal MD IMPRESSION: Normal double contrast esophagram exam. -------- FINAL REPORT -------- Dictated By: Meenakshi Montgomery Dictated Date: 09/20/2024 10:44 ET Assigned Physician: Surjit Iqbal Reviewed and Electronically Signed By: Surjit Iqbal Signed Date: 09/20/2024 11:10 ET Workstation ID: [id number] Transcribed By: Self Edit Transcribed Date: 09/20/2024 10:47 ET Resident/PA/HUMAN PERFORMANCE CONSULTANT: Meenakshi Montgomery Jamal Chung MD IMG FLUOROSCOPY NH OCEDURES from Last 3 Months Care Teams Stroboscope Operator Relationship Specialty Start Date End Date Juan Stone NP [facility] [address] [place] [address] PCP - General Nurse Practitioner 09/20/24
== END 2024-11-07 13:43 | disposition home or self-care (01) ==
LOC: HO.MRI 13:42
PROVIDERS: PCP Nurse Practitioner; Visit Provider Nurse Practitioner
DX: T85.43XA Leakage of breast prosthesis and implant, initial encounter (principal)
CPT/HCPCS: 77047

== ENCOUNTER → 2024-11-07 13:52 | Outpatient (BNV) | payer MEDICARE, OTHER, SELFPAY | PROVIDERS: PCP Nurse Practitioner; Visit Provider Internal Medicine | DX: T85.43XA Leakage of breast prosthesis and implant, initial encounter (principal) | CPT/HCPCS: 77047 ==

== ENCOUNTER 2024-12-11 08:09 | Outpatient (REF) | payer MEDICARE, OTHER, SELFPAY ==
--- NOTE | ~2024-12-11 | US_ITS ---
EXAMINATION: US DIAGNOSTIC ULTRASOUND BREAST, MRI directed bilateral axillary ultrasound confirmation for prominent axillary lymph nodes. CLINICAL INFORMATION: Recent breast MRI with prominent axillary lymph nodes bilaterally.. COMPARISON: Comparison is made with relevant prior imaging. TECHNIQUE: Ultrasound of the breast is performed with real-time golden scale imaging and color Doppler. FINDINGS: Targeted color Doppler ultrasound scanning in the bilateral axillary regions demonstrates multiple normal-appearing axillary lymph nodes. There is no abnormal axillary lymph node. Results are discussed with the patient at time of visit. US/US breast BI limited mamm only IMPRESSION: Bilateral normal axillary lymph nodes. ASSESSMENT: BI-RADS 1: Negative RECOMMENDATION: Bilateral normal axillary lymph nodes. Recommend clinical evaluation follow-up and routine screening if indicated. This patient's information was entered into a reminder system with a target due date for their next mammogram. Electronically signed by: Naima Cueto DO 12/11/2024 09:38 AM ISA
--- OUTSIDE RECORDS SUMMARY | 2024-12-11 08:12 | XMS_ITS | Clinical Summary ---
Author Organization [facility] Address [address] [place] [address] Phone Care Team Providers Care Cook Mayonnaise Name Role Phone Juan Stone NP Primary Care Provider [phone] Encounters Date Type Department Care Team Description 09/20/2024 7:39 AM EST - 09/20/2024 11:59 PM EST Hospital Encounter [facility] Xray [address] [place] [id number] GERD (gastroesophageal reflux disease) Discharge Disposition: Home or Self Care from Last 3 Months Social History Tobacco Use Types Packs/Day Years Used Date Smoking Tobacco: Never Assessed Comments Unknown Sex and Gender Information Value Date Recorded Sex Assigned at Not on file Legal Sex Female 1:08 AM EST Gender Identity Not on file Sexual Orientation Not on file Plan of Treatment Health Maintenance Due Date Last Done Comments COVID-19 Vaccine (#1) 1945 Pneumococcal Vaccine: 50+ Years (1 of 1 - PCV) 1991 Zoster Vaccines (1 of 2) 1991 RSV Immunization Patients 60 + Years Old (1 - 1-dose 75+ series) 2016 DTaP,Tdap,and Td Vaccines (2 - Td or Tdap) 01/19/2021 01/19/2011 Cholesterol Screening (Lipid Panel) 09/20/2022 Depression Screening 09/20/2022 Falls Risk Assessment 09/20/2022 Osteoporosis Screening (Bone Density Screening) 09/20/2022 Social Influencers of Health Screening 09/20/2022 Influenza Vaccine (#1) 2024 9, 07/22/2018, 08/10/2017 Hypertension/CHF/CAD Annual BMP Blood Test [...] patient's age to complete this topic Meningococcal B Vacine Aged Out No lo nger eligible based on patient's age to complete [...] Signed Date: 09/20/2024 11:10 ET Workstation ID: [id number] Transcribed By: Self Edit Transcribed Date: 09/20/2024 10:47 ET Resident/PA/NEGATIVE STRIPPER: Meenakshi Montgomery Narrative 09/20/2024 11:10 AM EST FINDINGS: Double contrast esophagram performed. COMPARISON: Upper GI July 2021 HISTORY: Patient is a 83-year-old female with history of dysphagia, GERD. [employer] radiographs: 1 view chest radiograph demonstrates cardiac [...] a 83-year-old female with history of dysphagia,GERD. [employer] radiographs: 1 view chest radiograph demonstrates cardiac [...] Signed Date: 09/20/2024 11:10 ET Workstation ID: [id number] Transcribed By: Self Edit Transcribed Date: 09/20/2024 10:47 ET Resident/JOYCE/NEGATIVE STRIPPER: Meenakshi Montgomery Jamal Chung MD IMG FLUOROSCOPY PROCEDURES Final Result from Last 3 Months Insurance MEDICARE Member Subscriber Plan / Payer (Ef fective 2024-Present) Name:Franc Schwartz Merlene Member ID:[id number] Relation to Subscriber:Self Name:Franc Schwartz Merlene Subscriber ID:[id number] Payer ID:Not on file Group ID:Not on file Type:Medicare Address: [address] [address] [facility] [place] [address] Care Teams Cook Mayonnaise Relationship Specialty Start Date End Date Juan Stone NP [facility] [address] [address] PCP - General Nurse Practitioner 09/20/24
== END 2024-12-11 08:10 | disposition home or self-care (01) ==
LOC: HO.MAMMO 08:09
PROVIDERS: PCP Nurse Practitioner; Visit Provider Nurse Practitioner
DX: R59.9 Enlarged lymph nodes, unspecified (principal)
CPT/HCPCS: 76642

== ENCOUNTER → 2024-12-11 08:30 | Outpatient (BNV) | payer MEDICARE, OTHER, SELFPAY | PROVIDERS: PCP Nurse Practitioner; Visit Provider Internal Medicine | DX: N63.31 Unspecified lump in axillary tail of the right breast (principal); N63.32 Unspecified lump in axillary tail of the left breast | CPT/HCPCS: 76642 ==

== ENCOUNTER 2024-12-21 12:35 | Outpatient (AMB) | payer MEDICARE, OTHER, SELFPAY ==
[2024-12-21 12:41] VITALS: BP 110/64; PULSE 85; BMI 23.5
--- NOTE | 2024-12-21 12:41 | MHC.OFFVIS ---
Vital Signs 12/21/24 12:41 Height 5 ft 5 in Weight 141 lb 1.533 oz BMI 23.5 BP 110/64 Blood Pressure Location Lt brachial Position Sitting Pulse 85 Intake Visit Reasons: 1 yr f/up Intake Note: 1 year follow-up with ekg feeling good Police Crime Scene Technician Required: No Allergies naproxen [From NAPROSYN] Allergy (Unknown, Verified 08/01/24 13:57) GI UPSET Medication List - Last Reconciled 12/21/24 by Cosme Otero MD adalimumab (Humira) inject one - 40 mg/0.8 mL syringe every 2 weeks subcut alprazolam 0.5 mg PO BEDTIME PRN amlodipine 2.5 mg PO DAILY aspirin 81 mg PO DAILY atorvastatin 80 mg PO BEDTIME calcium citrate 200 mg PO BID Lactobac. rhamnosus GG-inulin 10 billion cell -200 mg ([facility] [employer]) caps PO leflunomide 20 mg PO DAILY metoprolol succinate ER 50 mg PO DAILY omeprazole 20 mg PO DAILY valsartan 40 mg PO BID HPI Comments Details: Merlene comes for follow-up. She has been doing very well. She underwent knee surgery last year without any issues. Now he is more active and mobile although does not exercise regularly does not have any exertional symptoms chest pain or shortness of breath. No lightheadedness, syncope. Blood pressure is extremely well optimized on current therapy. Denies any heart failure symptoms. Denies any prolonged palpitation irregular heartbeat. [facility] Medical History Pulmonary nodule Rheumatoid arthritis Hiatal hernia Acute bronchitis with bronchospasm Chronic rhinitis Cough Palpitation POTS (postural orthostatic tachycardia syndrome) HLD (hyperlipidemia) HTN (hypertension) Surgical History Hx of knee surgery Family History Father Sudden cardiac CVD (cardiovascular disease) HTN (hypertension) Mother Diabetes Social History Patient Tobacco Use Status: Never used Tobacco Review of Systems Const Denies chills, Denies fatigue, Denies fever(s), Denies frequent falls, Denies weakness, Denies weight gain and Denies weight loss ENT Denies dizziness Card Denies chest pain, Denies leg edema, Denies lightheadedness, Denies palpitations, Denies dyspnea, Denies dyspnea on exertion, Denies orthopnea and Denies other (loss of consciousness) Resp Denies cough, Denies dyspnea and Denies dyspnea on exertion GI Denies hematochezia and Denies change in stool character Musc Denies abnormal gait, Denies muscle weakness, Denies numbness, Denies radiating pain into limb and Denies tingling Neuro Denies abnormal gait, Denies dizziness, Denies frequent falls, Denies numbness, Denies tingling and Denies weakness Endo Denies fatigue and Denies palpitations Physical Exam Vital Signs: Last Vital Signs Pulse 85 12/21/24 12:41 BP 110/64 12/21/24 12:41 BMI result Body Mass Index 23.5 Office Procedures EKG Details: EKG shows normal sinus rhythm nonspecific ST T wave changes 30008-Yexxtiphaashatbor, Complete Assessment & Plan Assessment & Plan (1) Labile blood pressure: Code(s): R09.89 - Other specified symptoms and signs involving the circulatory and respiratory systems Category: Medical Plan: Labile blood pressure on patient which is extremely well optimized on current therapy with metoprolol and amlodipine as well as valsartan at current dose. Advised to maintain adequate hydration as option to avoid significant orthostatic hypotension. Orthostatic precautions were discussed. Advised to continue monitor blood pressure at home maintain a log. Goal blood pressure less than 130/84. Continue statin therapy with target goal LDL less than 70 mg/dL. Will follow up in the clinic in 2 years, sooner p.r.n.. Thank you for allowing me to partake in her care Coding Level of Care Code Est Pt Level 4 (04130) Complex EM visit Add On G2211 Diagnoses Labile blood pressure R09.89 CPT Codes EKG - CPT: 97535-Edbnglvhfyzozcidr, Complete ([id number])
--- OUTSIDE RECORDS SUMMARY | 2024-12-21 15:06 | XMS_ITS | Clinical Summary ---
Author Organization [facility] Address [address] [place] [phone] Phone Care Team Providers Care Coverage Analyst Name Role Phone Juan Stone NP Primary Care Provider [phone] Social History Tobacco Use Types Packs/Day Years [...] on patient's age to complete this topic Insurance MEDICARE [facility] [place] [id number] Care Teams Coverage Analyst Relationship Specialty Start Date End Date Juan Stone NP [facility] [address] [place] [address] PCP - General Nurse Practitioner 09/20/24
== END 2024-12-21 13:05 | disposition home or self-care (01) ==
PROVIDERS: PCP Physician Assistant Medical; Visit Provider Internal Medicine Cardiovascular Disease
DX: R09.89 Other specified symptoms and signs involving the circulatory and respiratory systems (principal)
CPT/HCPCS: 93010; 99214; G2211

== ENCOUNTER → 2024-12-21 12:35 | Outpatient (BNVA) | payer MEDICARE, OTHER, SELFPAY | PROVIDERS: PCP Physician Assistant Medical; Visit Provider Internal Medicine Cardiovascular Disease | DX: R09.89 Other specified symptoms and signs involving the circulatory and respiratory systems (principal) | CPT/HCPCS: 93005; 99212 ==

== ENCOUNTER 2025-04-16 09:34 | Outpatient (AMB) | payer MEDICARE, OTHER, SELFPAY ==
[2025-04-16 09:43] VITALS: BP 124/64; PULSE 90; O2SAT 95; BMI 22.9
--- NOTE | 2025-04-16 09:43 | MHC.OFFVIS ---
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 She was evaluated multiple times. She was tested negative for COVID. She required cortical steroid therapy. Ultimately also required antibiotics. After several months of dealing with this her symptoms are now improved and she is back to her baseline. It was positive sick contacts of the time. Denies any fevers or chills. Based on the worsening symptoms it was recommended that she follow-up with Pulmonary. Currently she is doing well she is not using any respiratory medicines. 04/06/2022 the patient is here for a pulmonary follow-up visit. She continues to have significant dyspnea with minimal activity. Moderate severity. Very limiting as far as her ability to function. She has noticed increased heart rate. We did go for brief 6 minute walk test and she maintain a pulse ox of 98%. However, heart rate went up to 115 and the patient was visibly dyspneic with a dyspnea score of 5 at a time. Patient did rest and her symptoms improved. Her last echocardiogram was approximately 2 years ago. She does have a history of connective tissue diseases. Therefore pulmonary vascular conditions need to be considered. The patient did undergo pulmonary function studies also demonstrating a decrease in her diffusing capacity suggesting underlying pulmonary vascular conditions and or parenchymal disease. The patient had a low normal total lung capacity. She also has evidence of snoring documented by has been. Also apneic episodes. She does have some fatigue and daytime drowsiness with an [place] score elevated at 12 over 24. I will request a home sleep study at this time. In addition to that we will do blood work in addition to a D-dimer to assess her risk for thromboembolic disease. indeed her D-dimer came back positive therefore will go ahead and order a CTA to rule out the possibility of thromboembolic disease. The patient also has had the increased heart rate issue. I did speak to her cardiology is briefly and will go ahead and order an echocardiogram at this time. 05/29/2022 the patient is here for a pulmonary follow-up visit. She is feeling better. Still has minimal dyspnea with exertion. We did review her CTA. She has small subcentimeter pulmonary nodule that will need follow-up. Otherwise no evidence of any thromboembolic disease. No other parenchymal disease. Patient also had a sleep study demonstrating no evidence of any sleep apnea. Therefore no clear explanation for the decrease in the diffusing capacity. Hemoglobin stable. The patient does have some diastolic dysfunction. She is already on cardioprotective medications. No further medical interventions at this time will have her follow-up in a year's time with PFTs and a CT scan. If she has any issues prior to that she is to call the office for an earlier assessment. 11/23/2022 the patient is here for a pulmonary follow-up visit. The patient continues to do well. She has not had to use her maintenance inhaler or any rescue medication. Denies any significant shortness of breath. The patient did have a CT scan of the chest with the summer in March 2022 demonstrating small subcentimeter pulmonary nodules. The plan will be to repeat the CT scan around a year from her last 1. the patient does continue the Humira with good response without any significant pulmonary manifestations. She continues with reflux diet and also on the PPI for her known hiatal hernia and reflux disease. Initial montero the patient feels a lot better after she was given vitamin B12. she will follow-up with the [facility] [place] regarding the low cortisol levels. And she also continue to follow closely with rheumatology. 12/21/2023 the patient is here for a pulmonary follow-up visit. Overall the patient has been doing fairly well. She continues have a cough. The cough is moderate severe. tends to be intermittent and not productive. She has been evaluated by multiple specialties including ENT and GI. She does have significant reflux disease. She is already on a PPI. We did talk about the importance of the reflux diet and also sleeping with the head of bed elevated. She is going to look into bed risers for the head of the bed. She also needs to be careful with the mid night snacks. She should keep them to minimum. She did have a CT scan of chest which we personally reviewed back over the summer 2022. She does have pulmonary nodules. She does have a high risk history of cancer. Her brother recently of lung cancer so therefore she is very concerned. Will plan to repeat her CT scan again in 6 months. If the patient develops any worsening symptoms she will call for an earlier assessment. Otherwise will provide her with the benzonatate cough medication that she can try as needed. 08/01/2024 the patient is here for a pulmonary follow-up visit. Overall she is doing well from a respiratory status. The patient did have a recent CT scan of the chest which we personally reviewed. Pulmonary nodules appear to be stable. Will follow-up in a year's time. In the meantime she does complaint of cough and hoarseness. She does have underlying reflux disease. The patient does have a hiatal hernia. Explained to her the issues with the constant reflux disease affecting her pharynx and also laryngeal penetration. The patient still is on a PPI. She has not followed the reflux recommendations however. I did recommend she sleep with the head of elevated and time minimize eating close to the bedtime. The patient already had an ENT evaluation with laryngoscopy demonstrating no significant findings. She also has a postnasal drip with some cobblestoning and she does have a nasal spray that she has use. if the symptoms persist patient can always call and we can also make a referral again to ENT. In the meantime her CT scan is reassuring without any significant abnormalities noted, although, We are still waiting for the final read. 04/16/2025 the patient is here for a pulmonary follow-up visit. She had been admitted to the hospital after developing worsening respiratory symptoms. Initially the patient did go to an urgent care where she was diagnosed with bronchitis and pneumonia and she was treated with antibiotics. Subsequently after that she started developing worsening shortness of breath and cough and she went via ambulance to the hospital. She was found to be hypoxic and also having significant wheezing. She was thought to have an asthma or COPD exacerbation. She was treated with prednisone and also nebulized therapy. Now she is back to her baseline. She is wondering if she has a diagnosis of asthma. We did review her PFTs from 2021 demonstrating no evidence of obstructive nor restrictive disease Overall the patient has been doing okay she is still complaining of the hoarseness. Still bothering her. Will go ahead and start her on ipratropium nasal spray cases related postnasal drip. Also see about providing her Tessalon Perles in order for her to stop coughing therefore stopping to irritate that area. The patient will come back in the fall will have her undergo PFTs and also she is scheduled for CT scan to follow-up with her nodules done. [facility] Medical History Pulmonary nodule Rheumatoid arthritis Hiatal hernia Acute bronchitis with bronchospasm Chronic rhinitis Cough Palpitation POTS (postural orthostatic tachycardia syndrome) HLD (hyperlipidemia) HTN (hypertension) Surgical History Hx of knee surgery Family History Father Sudden cardiac CVD (cardiovascular disease) HTN (hypertension) Mother Diabetes Social History Patient Tobacco Use Status: Never used Tobacco Review of Systems Const Denies chills, Denies fatigue, Denies fever(s), Denies frequent falls, Denies snoring, Denies weakness, Denies weight gain and Denies weight loss ENT Reports change in voice, Reports dysphagia, Reports vertigo, Denies dizziness, Reports hoarseness and Reports nasal congestion Card Denies chest pain, Denies leg edema, Denies lightheadedness, Reports palpitations, Denies dyspnea, Reports dyspnea on exertion, Denies orthopnea and Denies other (loss of consciousness) Resp Reports cough, Denies dyspnea, Reports dyspnea on exertion and Denies snoring GI Denies hematochezia, Denies change in stool character, Reports dysphagia and Reports dyspepsia Musc Denies abnormal gait, Denies muscle weakness, Denies numbness, Denies radiating pain into limb and Denies tingling Neuro Denies abnormal gait, Reports vertigo, Denies dizziness, Denies frequent falls, Denies numbness, Denies tingling and Denies weakness Endo Denies fatigue and Reports palpitations Physical Exam Vital Signs: Last Vital Signs Pulse 90 04/16/25 09:43 BP 124/64 04/16/25 09:43 Pulse Ox 95 04/16/25 09:43 Oxygen Delivery Method Room Air 04/16/25 09:43 BMI result Body Mass Index 22.9 Const General: cooperative, comfortable, no acute distress, alert and awake Nutritional Appearance: thin and other (Frail elderly woman) Orientation/consciousness: patient oriented x3 Limitations: ambulation with cane Neck Neck: Yes trachea midline, Yes supple and Yes no JVD Chest Chest palpation & inspection: normal inspection of the chest Resp Effort & Inspection: normal respiratory effort Auscultation: clear to auscultation bilaterally Cardio Jugular venous distension: no JVD Palpation: normal PMI Rate: regular rate Rhythm: regular rhythm Heart sounds: S1 normal heart sound present and S2 normal heart sound present Neuro General: patient oriented x3 and no focal motor deficits Extrem General: Yes no clubbing, cyanosis or edema Psych Appearance: grossly normal Assessment & Plan Assessment & Plan (1) Cough: Code(s): R05.9 - Cough, unspecified Category: Medical Qualifiers: Cough type: chronic Qualified Code(s): R05.3 - Chronic cough Plan: Multifactorial: reflux, post nasal drip. RA may result in follicular bronchiolitis also resulting in on going respiratory symptoms. (2) Chronic rhinitis: Code(s): J31.0 - Chronic rhinitis Category: Medical (3) Hiatal hernia: Code(s): K44.9 - Diaphragmatic hernia without obstruction or gangrene Category: Medical (4) Dyspnea: Comment: better Code(s): R06.00 - Dyspnea, unspecified Category: Medical Qualifiers: Dyspnea type: dyspnea on exertion Qualified Code(s): R06.09 - Other forms of dyspnea (5) Pulmonary nodule: Code(s): R91.1 - Solitary pulmonary nodule Category: Medical Plan STACEY as needed reflux diet sleep with HOB elevated CT chest 12 months Barium swallow at [facility] F/U 3 months Orders: Orders PFT pulmonary function test Today R06.09 - Other forms of dyspnea Medications: New ipratropium bromide administer into each nostril 2 sprays intranasal TID PRN 45 mL 3RF allergy symptoms 90 days benzonatate 200 mg PO BID PRN 60 caps 0RF cough 30 days Coding Level of Care Code Est Pt Level 4 (85136) Complex EM visit Add On G2211 Diagnoses Chronic cough R05.3 Cough type: chronic Chronic rhinitis J31.0 Hiatal hernia K44.9 Dyspnea on exertion R06.09 Dyspnea type: dyspnea on exertion Pulmonary nodule R91.1 Time Spent (min) 17
--- OUTSIDE RECORDS SUMMARY | 2025-04-16 09:57 | XMS_ITS | Clinical Summary ---
Author Organization [facility] Address [address] [place] [phone] Phone Care Team Providers Care Daycare Manager Name Role Phone Juan Stone NP Primary Care Provider [phone] Social History Tobacco Use Types Packs/Day Years [...] Vaccines (1 of 2) 1991 RSV Immunization Adult Patients (1 - 1-dose 75+ series) 2016 DTaP,Tdap,and Td Vaccines (2 - Td or Tdap) 01/19/2021 01/19/2011 Cholesterol Screening (Lipid Panel) 09/20/2022 Depression Screening 09/20/2022 Falls Risk Assessment 09/20/2022 Osteoporosis Screening (Bone Density Screening) 09/20/2022 Social Influencers of Health Screening 09/20/2022 Influenza Vaccine (Season Ended) 2025 07/14/2019, 07/22/2018, 08/10/2017 Hypertension/CHF/CAD Annual BMP Blood Test [...] age to complete this topic Meningococcal B Vaccine Aged Out No l onger eligible based on patient's age to complete this topic RSV Immunization Patients Under 20 months Aged Out No longer eligible b ased on patient's age to complete this topic Varicella Vaccines Aged Out No longer eligible based on patient's age to complete this topic Insurance MEDICARE [facility] [place] [id number] Care Teams Daycare Manager Relationship Specialty Start Date End Date Juan Stone NP [facility] [address] [place] [address] PCP - General Nurse Practitioner 09/20/24
== END 2025-04-16 10:19 | disposition home or self-care (01) ==
LOC: HO.HPS 09:35
PROVIDERS: PCP Physician Assistant Medical; Visit Provider Hospitalist
DX: R05.3 Chronic cough (principal); J31.0 Chronic rhinitis; K44.9 Diaphragmatic hernia without obstruction or gangrene; R06.09 Other forms of dyspnea; R91.1 Solitary pulmonary nodule
CPT/HCPCS: 99213; G2211

== ENCOUNTER → 2025-04-16 09:34 | Outpatient (BNVA) | payer MEDICARE, OTHER, SELFPAY | PROVIDERS: PCP Physician Assistant Medical; Visit Provider Hospitalist | DX: R05.3 Chronic cough (principal); J31.0 Chronic rhinitis; R06.09 Other forms of dyspnea; K44.9 Diaphragmatic hernia without obstruction or gangrene; R91.1 Solitary pulmonary nodule; Z79.899 Other long term (current) drug therapy | CPT/HCPCS: 99212 ==

== ENCOUNTER 2025-06-26 12:47 | Outpatient (REF) | payer MEDICARE, OTHER, SELFPAY ==
--- OUTSIDE RECORDS SUMMARY | 2019-09-19 13:25 | XMS_ITS | Encounter Summary ---
Author Organization [facility] Address [address] [place] [address] Phone Care Team Providers Care Permanent Waver Name Role Phone Ursula Vieira MD Primary Care Provider [phone] Encounter Details Date Type Department Care Team (Late st Contact Info) Description 09/19/2019 12:25 PM [facility] Hospital Encounter [facility] Care [address] [place] [address] Yoly Baez PA [address] [place] [address] Social History Tobacco Use Types Packs/Day Years [...] 3:34 PM EDT Burton Rivera, ASAEL * [place] Suicide Severity Rating Scale (Screener/Recent Self-Report) Question [...] Care Team (Late st Contact Info) Description 04/02/2026 12:40 PM EDT Office Visit [facility] [address] [place] [address] Jonas Mehta MD [address] [place] [phone] [email or web address] 08/05/2026 1:00 PM EDT Office Visit [facility] Rheumatology [address] [place] [address] Gabbie Pozo MD [address] [facility], [address] [place] [address] [email or web address] documented as of this encounter Procedures Procedure [...] documented as of this encounter Care Teams Permanent Waver Relationship Specialty Start Date End Date Ursula Vieira MD [address] [facility] [address] [place] [address] PCP - General Internal Medicine 03/12/16 06/19/24 documented as of this encounter Additional Source Comments The information contained in this document represents components of the legal health record. It is not the complete legal health record.[facility]
--- OUTSIDE RECORDS SUMMARY | 2021-04-06 10:08 | XMS_ITS | Encounter Summary ---
Author Organization [facility] Address [address] [place] [address] [place] [address] Phone Care Team Providers Care Law Enforcement Director Name Role Phone Kulwinder Vieira MD Primary Care Provider [phone] [phone] Encounter Details Date Type Department Care Team (Late st Contact Info) Description 04/06/2021 10:08 AM EDT Hospital Encounter [facility] [address] [place] [address] Jj Pelaez PA [address] [place] [address] [email or web address] Social History Tobacco Use Types Packs/Day [...] 3:34 PM EDT Burton Rivera, ASAEL * [place] Suicide Severity Rating Scale (Screener/Recent Self-Report) Question [...] Description 04/02/2026 12:40 PM EDT Office Visit [facility] [address] [facility] 12th [place] [address] Jonas Mehta MD [address] [place] [address] [email or web address] 08/05/2026 1:00 PM EDT Office Visit [facility] Rheumatology [address] [place] [address] Gabbie Pozo MD [address] [place] [address], [address] [place] [address] documented as of this encounter Procedures Procedure [...] documented as of this encounter Care Teams Law Enforcement Director Relationship Specialty Start Date End Date Kulwinder Vieira MD [address] [place] [address] PCP - General Internal Medicine 03/12/16 06/19/24 documented as of this encounter Additional Source Comments The information contained in this document represents components of the legal health record. It is not the complete legal health record.[facility]
--- OUTSIDE RECORDS SUMMARY | 2023-07-09 17:59 | XMS_ITS | Encounter Summary ---
Author Organization [facility] Address [address] [place] [address] Phone Care Team Providers Care Dimension Stone Quarry Supervisor Name Role Phone Kulwinder Vieira MD Primary Care Provider [phone] Encounter Details Date Type Department Care Team (Late st Contact Info) Description 07/09/2023 5:59 PM EDT Hospital Encounter [facility] [address] [place] [address] Cris Loza PA-C, MS [address] [place] [address] [email or web address] Social History Tobacco Use Types Packs/Day Years [...] Description 04/02/2026 12:40 PM EDT Office Visit [facility] [address] [place] [address] Jonas Mehta MD [address] [place] [address] [email or web address] 08/05/2026 1:00 PM EDT Office Visit [facility] Rheumatology [address] [place] [address] Gabbie Pozo MD [address] [facility], [address] [place] [address] [email or web address] documented as of this encounter Procedures Procedure [...] 6:17 PM EDT No acute abnormality. ATTESTATION: IBlanco as teaching physician, have reviewed the images [...] documented as of this encounter Care Teams Dimension Stone Quarry Supervisor Relationship Specialty Start Date End Date Kulwinder Vieira MD [address] [place] [address] PCP - General Internal Medicine 03/12/16 06/19/24 documented as of this encounter Additional Source Comments The information contained in this document represents components of the legal health record. It is not the complete legal health record.[facility]
--- OUTSIDE RECORDS SUMMARY | 2024-08-26 12:52 | XMS_ITS | Encounter Summary ---
Author Organization [facility] Address [address] [address] Phone Care Team Providers Care Software Application Tester Name Role Phone Juan Stone REFLESHER Primary Care Provider [phone] Encounter Details Date Type Department Care Team (Late st Contact Info) Description 08/26/2024 11:52 AM EST Hospital Encounter [facility] [address] [place] [address] Isabella Barahona, NAIN [address] [place] [address] Social History Tobacco Use Types Packs/Day Years [...] Description 04/02/2026 12:40 PM EDT Office Visit [facility] [address] [place] [address] Jonas Mehta MD [address] [place] [address] [email or web address] 08/05/2026 1:00 PM EDT Office Visit [facility] Rheumatology [address] [place] [address] Gabbie Pozo MD 22 [facility], [address] [place] [address] [email or web address] documented as of this encounter Procedures Procedure [...] report originally createdby Pao Newton. Isabella Barahona NP IMG XR CHEST Final Resu lt documented in this encounter Visit Diagnoses Not on filedocumented in this encounter Care Teams Software Application Tester Relationship Specialty Start Date End Date Juan Stone NP [address] [place] [address] PCP - General Nurse Practitioner 06/20/24 documented as of this encounter Additional Source Comments The information contained in this document represents components of the legal health record. It is not the complete legal health record.[facility]
--- OUTSIDE RECORDS SUMMARY | 2025-02-07 10:30 | XMS_ITS | Encounter Summary ---
Author Organization [facility] Address [address] [facility] [address] [place] [address] Phone Care Team Providers Care Offal Trimmer Name Role Phone Juan Stone RETAIL RESET MERCHANDISER Primary Care Provider [phone] Encounter Details Date Type Department Care Team (Late st Contact Info) Description 02/07/2025 10:30 AM EDT Hospital Encounter [facility] [address] [place] [address] Isabella Barahona, NAIN [address] [place] [address] [email or web address] Social History Tobacco Use Types Packs/Day Years [...] Description 04/02/2026 12:40 PM EDT Office Visit [facility] [address] [place] [address] Jonas Mehta MD [address] [place] [address] [email or web address] 08/05/2026 1:00 PM EDT Office Visit [facility] Rheumatology [address] [place] [address] Gabbie Pozo MD [address] [facility], [address] [place] [address] [email or web address] documented as of this [...] on filedocumented in this encounter Care Teams Offal Trimmer Relationship Specialty Start Date End Date Juan Stone NP [address] [place] [address] PCP - General Nurse Practitioner 06/20/24 documented as of this encounter Additional Source Comments The information contained in this document represents components of the legal health record. It is not the complete legal health record.[facility]
--- NOTE | 2025-06-26 12:53 | PFT_ITS ---
Indication: Dyspnea Spirometry FEV1 to FVC 68%; FEV1 1.65 L; FVC 2.43 L. no significant response to bronchodilators noted. Lung Volumes Total lung capacity 79% predicted; residual volume 72% predicted; expiratory reserve volume 69% predicted Diffusion Capacity DLCO 56% predicted Comparisons None Interpretation There is an obstructive ventilatory defect consistent with mild COPD. No significant response to bronchodilators noted. In addition to that the patient has a very mild restrictive ventilatory defect consistent with mild restrictive lung disease. Diffusing capacity demonstrates some moderate impairment secondary to the above. Clinical correlation warranted. MTDD
[2025-06-26 13:47] VITALS: PULSE 74; O2SAT 95
--- OUTSIDE RECORDS SUMMARY | 2025-06-26 15:09 | XMS_ITS | Clinical Summary ---
Author Organization [facility] Address [address] [place] [address] Phone Care Team Providers Care Rolling Mill Operator Helper Name Role Phone Juan Stone NP Primary Care Provider [phone] Allergies Active Allergy Reactions Criticality Noted Date Comments Naproxen 04/21/2024 Other Reaction(s): upset stomach Medications LACTOBACILLUS RHAMNOSUS GG (CULTURELLE ORAL) Take by mouth. Reported on 10/29/2016 Active CALCIUM CITRATE/VITAMIN D3 (CITRACAL + D ORAL) Take by mouth 2 (two) times a day. Reported on 10/29/2016 Active aspirin 81 mg chewable tablet Take 81 mg by mouth 3 (three) times a week. Active metoprolol succinate (TOPROL-XL) 50 MG 24 hr tablet Take 50 mg by mouth daily. Active valsartan (DIOVAN) 40 MG tablet Take 40 mg by mouth 2 (two) times a day. Active omeprazole (PRILOSEC) 20 MG tablet Take 20 mg by mouth daily as needed. Active atorvastatin (LIPITOR) 80 MG tablet Take 80 mg by mouth daily. Active amLODIPine (NORVASC) 2.5 MG tablet Take 2.5 mg by mouth daily. Active cyanocobalamin, vitamin B-12, (VITAMIN B-12) 500 MCG tablet Take 500 mcg by mouth daily. Active adalimumab (HUMIRA) 40 mg/0.8 mL syringe kit Inject 40 mg under the skin every 14 (fourteen) days. 04/30/2022 Active albuterol 90 mcg/actuation inhaler Inhale 2 puffs into the lungs every 6 (six) hours as needed. 6.7 g 08/26/2024 Active leflunomide (ARAVA) 20 MG tabletIndicatio ns:Rheumatoid arthritis involving multiple sites with positive rheumatoid factor Take 1 tablet (20 mg total) by mouth daily. 90 tablet 1 05/01/2025 Active Hospital, Clinic, or Other Facility Administered Medication Ordered Dose Route Frequency Start Date End Date Status aspirin chewable tablet 81 mgIndications:Shortness of breath,Tightness in chest,Low oxygen saturation 81 mg Oral Daily 02/17/2025 Active Active Problems Problem Noted Date Diagnosed Date Shingles 08/13/2023 Rheumatoid arthritis involvi ng multiple sites with positive rheumatoid factor 07/30/2023 Assessment & Plan (03/05/2024 8:55 PM EDT): Seropositive rheumatoid arthritis well-controlled on daily leflunomide. She has no active synovitis or swelling. Sent her for some labs today. Assessment & Plan (10/22/2023 11:28 AM EST): Seropositive rheumatoid arthritis currently stable. She has been off her medications given the COVID infection and the prolonged episode of shingles. Both of these have since resolved. She can resume daily leflunomide now. Hopefully this will prevent a flare of RA, so she can proceed with her knee replacement. Assessment & Plan (07/30/2023 9:45 AM EDT): Seropositive RA well-controlled on Humira every other week and daily leflunomide. She has no active synovitis. She will have to stop both Humira and leflunomide 2 weeks before her knee replacement on September 14. Primary osteoarthritis involving multiple joints 07/30/2023 Assessment & Plan (03/05/2024 8:55 PM EDT): Osteoarthritis in multiple joints with no swelling. She can take Tylenol 650 mg as needed. Assessment & Plan (07/30/2023 9:47 AM EDT): Osteoarthritis in multiple joints with no swelling. Patient can try Tylenol 650 mg as needed. Gave her an IM injection of Triamcinolone for the stiffness. Primary osteoarthritis of left knee 07/30/2023 Assessment & Plan (03/05/2024 8:56 PM EDT): The left knee replaced recently and is currently working with physical therapy. She still has a mild contracture to the left knee and I strongly encouraged her to participate in physical therapy to reduce and relieve the contracture. Assessment & Plan (10/22/2023 11:26 AM EST): Advanced osteoarthritis of the left knee with valgus deformity and medial joint line pain. There is no warmth or effusion in the knee. Injected the knee with 40 mg of triamcinolone. She can safely proceed with a knee replacement in mid December with Dr. Hardy. Continue with Tylenol 650 mg as needed. Assessment & Plan (07/30/2023 9:47 AM EDT): Flare of end-stage osteoarthritis in the left knee. Injected the left knee with triamcinolone. Endophthalmitis 06/20/2015 Overview (09/24/2015): Endophthalmitis; OS S/P cataract extraction 06/20/2015 Overview (09/24/2015): S/P Cataract extraction; OU Inflammation of eyelid 06/20/2015 Overview (09/24/2015): Blepharitis Encounters Date Type Department Care Team Description 05/02/2025 Telephone [facility] Rheumatology [address] [place] [address] [place] [address] Pamela Burns MD FUV with new provider 05/01/2025 11:52 AM EDT - 05/01/2025 11:59 PM EDT Hospital Encounter [facility] [address] [place] [address] Pamela Burns MD Discharge Disposition: Home or Self Care 05/01/2025 11:30 AM EDT Office Visit [facility] Rheumatology [address] [place] [address] [place] [address] Pamela Burns MD 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); Encounter for monitoring leflunomide therapy; Adalimumab (Humira) long-term use; USP current use of systemic steroids; Primary osteoarthritis involving multiple joints; Immunosuppression due to drug therapy from Last 3 Months Immunizations Immunization Administration Dates Next Due Hepatitis A, Adult 10/01/2011,01/19/2011 Influenza High-Dose Trivalent Preservative Free IM 07/14/2019 Tdap 01/19/2011 Typhoid, ViCPs 01/19/2011 Family History Medical History Relation Comments Rheumatoid arthritis Cousin 1 Rheumatoid arthritis Breast cancer Cousin 2 Breast Cancer Heart attack Father Heart attack Hypertension Father Hypertension Rheumatoid arthritis Maternal Grandmother Rheuma toid arthritis Type 2 Diabetes Mother Diabetes Mellitu s Type 2 Type 1 Diabetes Sister 1 Diabetes Mellitu s Type 1 Uncoded Family History Sister 2 Thyroid p roblem COPD Sister 3 Chronic obstruct hoa lung disease Emphysema Sister 4 Pulmonary emphys lee Relation Status Comments Cousin 1 Cousin 2 Father Maternal Grandmother Mother Sister 1 Sister 2 Sister 3 Sister 4 Social History Tobacco Use Types Packs/Day Years Used Date Smoking Tobacco: Never Smokeless Tobacco: Never Tobacco Cessation:Counseling Given: Not Answered Alcohol Use Standard Drinks/Week Comments No 0 [...] EDT Gender Identity Female Sexual Orientation Straight Last Filed Vital Signs Vital Sign Reading Time Taken Comments Blood Pressure 134/74 05/01/2025 11:16 AM EDT Pulse 97 05/01/2025 11:16 AM EDT Temperature 37.2 C (99 F) 02/17/2025 9:08 AM EDT Respiratory Rate 20 02/17/2025 9:08 AM EDT Oxygen Saturation 98% 05/01/2025 11:16 AM EDT Inhaled Oxygen Concentration - - Weight 62.6 kg (138 lb) 05/01/2025 11:16 AM EDT Height 165.1 cm (5' 5 ) 08/26/2024 11:19 AM EST Body Mass Index 22.96 08/26/2024 11:19 AM EST Plan of Treatment Upcoming Encounters Date Type Department Care Team (Late st Contact Info) Description 04/02/2026 12:40 PM EDT Office Visit [facility] [address] [place] [address] Jonas Mehta MD [address] [facility] [place] [address] [email or web address] 08/05/2026 1:00 PM EDT Office Visit [facility] Rheumatology [address] [place] [address] Gabbie Pozo MD [address] [place] [address], [address] [place] [address] [email or web address] Health Maintenance Due Date Last Done Comments COVID-19 VACCINE (#1) 1945 DEPRESSION SCREENING 1953 PNEUMOCOCCAL VACCINES (50+ years) (1 of 2 - PCV) 1960 ZOSTER VACCINES (1 of 2) 1960 OSTEOPOROSIS SCREENING INITIAL (ONE-TIME) 2006 RSV VACCINE (1 - 1-dose 75+ series) 2016 Adult Td,Tdap Booster 01/19/2021 01/19/2011 INFLUENZA VACCINE (#1) 2025 07/14/2019 CREATININE LEVEL 05/01/2026 05/01/2025, , 02/15/2024, Additional history exists POTASSIUM LEVEL 05/01/2026 05/01/2025, 08/19, 02/15/2024, Additional history exists HEPATITIS A VACCINES Aged Out 10/01/2011, 01/20/20 11 No longer eligible based on patient's age to complete this topic HIB VACCINES Aged Out No longer eligi ble based on patient's age to complete this topic MENINGOCOCCAL VACCINES (ACWY) Aged Out No longer eligible based on patient's age to complete this topic MENINGOCOCCAL VACCINES (B) Aged Out N o longer eligible based on patient's age to complete this topic Medical Devices Not on file Procedures Procedure Name Priority Date/Time Associated Diagnosis Comments SEDIMENTATION RATE (ESR) Routine 05/01/2025 12:02 PM EDT Rheumatoid arthritis involving multiple sites with positive rheumatoid factor C-REACTIVE PROTEIN Routine 05/01/2025 12 :02 PM EDT Rheumatoid arthritis involving multiple sites with positive rheumatoid factor COMPREHENSIVE METABOLIC PANEL Routine 05/01/2025 12:02 PM EDT Rheumatoid arthritis involving multiple sites with positive rheumatoid factor CBC Routine 05/01/2025 12:02 PM EDT Rheumatoid arthritis involving multiple sites with positive rheumatoid factor from Last 3 Months Results * (ABNORMAL) Comprehensive metabolic panel (05/01/2025 12:02 PM EDT) SODIUM 140 133 - 146 mmol/L [facility] POTASSIUM 4.4 3.3 - 5.1 mmol/L [facility] CHLORIDE 105 96 - 108 mmol/L [facility] CO2 24 21 - 35 mmol/L [facility] BUN 14 6 - 19 mg/dL [facility] CREATININE 0.50 0.5 - 1.5 mg/dL [facility] GLUCOSE 95 70 - 99 mg/dL [facility] ALBUMIN 4.1 3.9 - 4.8 g/dL [facility] TOTAL PROTEIN 6.8 6.5 - 8.0 g/dL [facility] CALCIUM 10.2 8.4 - 10.3 mg/dL [facility] ALKALINE PHOSPHATASE 136(H) 39 - 117 U/L [facility] TOTAL BILIRUBIN 0.3 0.0 - 1.2 mg/dL [facility] AST 29 0 - 37 U/L [facility] ALT 12 0 - 40 U/L [facility] GLOBULIN 2.7 1 - 4.8 g/dL [facility] EGFR 93 >59 mL/min/1.7 3m2 [facility] Comment:Estimated glomerular filtration rate calculated using the CKD-EPI refit equation. ANION GAP 15 10 - 20 mmol/L [facility] Blood 05/01/2025 12:0 2 PM EDT 05/01/2025 12:10 PM EDT Pamela Burns MD LAB BLOOD ORDERABLES Final Res ult Performing Organization Address City/[facility]/ZIP Co de Phone Number [address] [address] * Sedimentation rate (ESR) (05/01/2025 12:02 PM EDT) ESR 6 0 - 30 mm/h [facility] Blood 05/01/2025 12:0 2 PM EDT 05/01/2025 12:10 PM EDT Pamela Burns MD LAB BLOOD ORDERABLES Final Res ult Performing Organization Address [facility] [email or web address]] Co de Phone Number [address] [address] * CBC (05/01/2025 12:02 PM EDT) WBC 7.09 4.00 - 11.00 K/uL [facility] RBC 4.14 4.00 - 5.20 M/uL [facility] HGB 12.3 12.0 - 16.0 g/dL [facility] HCT 37.8 36.0 - 46.0 % [facility] PLT 227 150 - 450 K/uL [facility] MCV 91.3 80.0 - 100.0 fL [facility] MCH 29.7 27.0 - 31.0 pg [facility] MCHC 32.5 32.0 - 36.0 g/dL [facility] RDW 13.2 11.5 - 14.5 % [facility] MPV 11.8 8.4 - 12.0 [facility] NRBC 0.00 0.00 /100 WBCs [facility] ABSOLUTE NRBC 0.00 0.00 K/uL [facility] Blood 05/01/2025 12:0 2 PM EDT 05/01/2025 12:10 PM EDT Pamela Burns MD LAB BLOOD ORDERABLES Final Res ult Performing Organization Address [facility]/ZIP Co de Phone Number [address] [address] * C-Reactive Protein (05/01/2025 12:02 PM EDT) C REACTIVE PROTEIN <3.0 0.0 - 4.0 mg/L [facility] Blood 05/01/2025 12:0 2 PM EDT 05/01/2025 12:10 PM EDT Pamela Burns MD LAB BLOOD ORDERABLES Final Res ult [address] [address] from Last 3 Months Insurance MEDICARE RAILROAD [facility] [place]MNI MEDICARE RAILROAD [facility] INDEMNITY MEDICARE RAILROAD Member Subscriber Plan / Payer (Ef fective 2006-Present) Name:Franc Pappasine Member ID:[id number] Relation to Subscriber:Self Name:Franc Pappas Subscriber ID:[id number] Payer ID:[id number] Group ID:Not on file Type:Medicare Address: [place] [address] [place] [address] INDEMNITY MEDICARE RAILROAD [facility] INDEMNITY MEDICARE RAILROAD [facility] INDEMNITY MED[facility]ARE RAILROAD [facility] INDEMNITY [facility] IN[facility] MEDICARE RAILROAD Member Subscriber Plan / Payer (Ef fective 2006-Present) Name:Franc Pappasine Member ID:[id number] Relation to Subscriber:Self Name:Franc Pappas Subscriber ID:[id number] Payer ID:[id number] Group ID:Not on file Type:Medicare Address: [address] HEALTHCARE INDEMNITY MEDICARE RAILROAD [employer] INDEMNITY Care Teams Rolling Mill Operator Helper Relationship Specialty Start Date End Date Juan Stone NP [address] [place] [address] PCP - General Nurse Practitioner 06/20/24 Additional Source Comments The information contained in this document represents components of the legal health record. It is not the complete legal health record.[facility]
--- OUTSIDE RECORDS SUMMARY | 2025-06-26 15:09 | XMS_ITS | Clinical Summary ---
Author Organization [facility] Address [address] [place] [phone] Phone Care Team Providers Care Parquet Floor Layer Name Role Phone Juan Stone NP Primary Care Provider [phone] Social History Tobacco Use Types Packs/Day Years [...] 01/19/2021 01/19/2011 Cholesterol Screening (Lipid Panel) 09/20/2022 Falls Risk Assessment 09/20/2022 Osteoporosis Screening (Bone Density Screening) 09/20/2022 Social Influencers of Health Screening 09/20/2022 Depression Screening 10/18/2024 Influenza Vaccine (#1) 2025 9, 07/22/2018, 08/10/2017 Hypertension/CHF/CAD Annual BMP Blood [...] age to complete this topic Insurance MEDICARE [facility] TIARA CASTANEDA [id number] Care Teams Parquet Floor Layer Relationship Specialty Start Date End Date Juan Stoen NP [facility] [address] [facility], [place] [address] PCP - General Nurse Practitioner 09/20/24
--- OUTSIDE RECORDS SUMMARY | 2025-06-26 15:09 | XMS_ITS | Encounter Summary ---
Author Organization [facility] Address [address] [place] [address] Phone Care Team Providers Care Marketing Development Representative Name Role Phone Kulwinder Vieira MD Primary Care Provider [phone] Juan Stone NP Primary Care Provider [phone] Encounter Details Date Type Department Care Team (Latest Contact Info) Description 04/14/2019 Transcribe Orders [facility] [address] [place] [address] Lizzy Castillo PA [address] [place] [address] Diarrhea, unspecified type (Primary Dx) Social History Tobacco Use Types Packs/Day Years Used Date Smoking Tobacco: Never Smokeless Tobacco: Never Alcohol Use Standard Drinks/Week Comments No 0 (1 standard drink = 0.6 oz pur e alcohol) Comments Unknown Sex and Gender Information Value Date Recorded Sex Assigned at Female 10/25/2017 9:36 AM EST Legal Sex Female 9:56 AM EDT Gender Identity Female Sexual Orientation Straight documented as of this encounter Plan of Treatment Upcoming Encounters Date Type Department Care Team (Late st Contact Info) Description 04/02/2026 12:40 PM EDT Office Visit [facility] [address] [place] [address] Jonas Mehta MD [address] [place] [id number] [email or web address] 08/05/2026 1:00 PM EDT Office Visit [facility] Rheumatology [address] [place] [address] Gabbie Pozo MD [address] [facility], [address] [place] [address] [email or web address] documented as of this encounter Results * C. DIFFICILE PCR (04/14/2019 9:54 AM EDT) C.DIFFICILE PCR Negative Negative [facility] C.DIFFICILE STRAIN PRESUMPTIVE NEGATIVE PRESUMPTIVE NEGATIVE [facility] Comment:Detection of 027/NAP 1/BI strains of C.difficile is presumptive and is solely for epidemiological purposes and is not intended to guide or monitor treatment of infections. Stool (Stool) 04/14/2019 9:5 4 AM EDT 04/14/2019 9:55 AM EDT Lizzy COOK MICROBIOLOGY - GENERAL ORDER [place]A Final Result [facility] [address] [place] [address] documented in this encounter Visit Diagnoses Diagnosis Diarrhea, unspecified type- Primary documented in this encounter Additional Health Concerns Infection Onset Date Last Indicated Resolved Time CoV-Risk 04/06/2021 04/06/2021 04/16/2021 1:24 AM EDT CoV-Risk 06/20/2024 06/20/2024 07/01/2024 1:23 AM EDT documented as of this encounter Care Teams Marketing Development Representative Relationship Specialty Start Date End Date Kulwinder Vieira MD [address] [place] [address] PCP - General Internal Medicine 03/12/16 06/19/24 Juan Stone NP [address] [place] [address] PCP - General Nurse Practitioner 06/20/24 documented as of this encounter Additional Source Comments The information contained in this document represents components of the legal health record. It is not the complete legal health record.[facility]
== END 2025-06-26 12:48 | disposition home or self-care (01) ==
LOC: HO.RESP 12:47
PROVIDERS: PCP Nurse Practitioner; Visit Provider Hospitalist
DX: R06.09 Other forms of dyspnea (principal)
CPT/HCPCS: 94010; 94640; 94727; 94729

== ENCOUNTER → 2025-06-26 12:53 | Outpatient (BNV) | payer MEDICARE, OTHER, SELFPAY | PROVIDERS: PCP Nurse Practitioner; Visit Provider Hospitalist | DX: J98.4 Other disorders of lung (principal) | CPT/HCPCS: 94060; 94727; 94729 ==

== ENCOUNTER 2025-07-20 08:42 | Outpatient (REF) | payer MEDICARE, OTHER, SELFPAY ==
--- OUTSIDE RECORDS SUMMARY | 2019-09-19 13:25 | XMS_ITS | Encounter Summary ---
Author Organization [facility] Address [address] [place] [address] Phone Care Team Providers Care String Laster Name Role Phone Ursula Vieira MD Primary Care Provider [phone] Encounter Details Date Type Department Care Team (Late st Contact Info) Description 09/19/2019 12:25 PM [facility] Hospital Encounter [facility] Urgent Care [address] [place] [address] Yoly Baez PA [address] [place] [address] Social History Tobacco Use Types Packs/Day Years [...] 3:34 PM EDT Burton Rivera, ASAEL * [place] Suicide Severity Rating Scale (Screener/Recent Self-Report) Question [...] Description 08/20/2025 11:00 AM EST Office Visit [facility] Rheumatology 22 [place] [address] Paty Bello DO 22 [facility], [address] [place] [address] 04/02/2026 12:40 PM EDT Office Visit [facility] [address] [place] [address] Jonas Mehta MD [address] [place] [address] [email or web address] documented as of this encounter Procedures Procedure [...] documented as of this encounter Care Teams String Laster Relationship Specialty Start Date End Date Ursula Vieira MD 300 [facility] [address] [place] [address] PCP - General Internal Medicine 03/12/16 06/19/24 documented as of this encounter Additional Source Comments The information contained in this document represents components of the legal health record. It is not the complete legal health record.[facility]
--- OUTSIDE RECORDS SUMMARY | 2021-04-06 10:08 | XMS_ITS | Encounter Summary ---
Author Organization [facility] Address [address] [place] [address] Phone Care Team Providers Care Integration Solution Architect Name Role Phone Kulwinder Vieira MD Primary Care Provider [phone] [phone] Encounter Details Date Type Department Care Team (Late st Contact Info) Description 04/06/2021 10:08 AM EDT Hospital Encounter [facility] [address] [place] [address] Jj Pelaez PA [address] [place] [phone] [email or web address] Social History Tobacco Use Types Packs/Day [...] 3:34 PM EDT Burton Rivera, ASAEL * [place] Suicide Severity Rating Scale (Screener/Recent Self-Report) Question [...] Description 08/20/2025 11:00 AM EST Office Visit [facility] Rheumatology 22 [place] [address] Paty Bello DO [address] [place] [address], [address] [place] [address] 04/02/2026 12:40 PM EDT Office Visit [facility] [address] [address] Jonas Mehta MD [address] [place] [address] [email or web address] documented as of this encounter [...] documented as of this encounter Care Teams Integration Solution Architect Relationship Specialty Start Date End Date Kulwinder Vieira MD [address] [place] [address] PCP - General Internal Medicine 03/12/16 06/19/24 documented as of this encounter Additional Source Comments The information contained in this document represents components of the legal health record. It is not the complete legal health record.[facility]
--- OUTSIDE RECORDS SUMMARY | 2023-07-09 17:59 | XMS_ITS | Encounter Summary ---
Author Organization [facility] Address [address] [place] [id number] Phone Care Team Providers Care Binding Bench Worker Name Role Phone Kulwinder Vieira MD Primary Care Provider [phone] Encounter Details Date Type Department Care Team (Late st Contact Info) Description 07/09/2023 5:59 PM EDT Hospital Encounter [facility] [address] [place] [id number] Cris Loza PA-C, MS [address] [place] [address] Social History Tobacco Use Types Packs/Day Years [...] Orientation Straight documented as of this encounter Plan of Treatment Upcoming Encounters Date Type Department Care Team (Late st Contact Info) Description 08/20/2025 11:00 AM EST Office Visit [facility] Rheumatology [address] [place] [address] Paty Bello, [address] [facility], [address] [place] [address] 04/02/2026 12:40 PM EDT Office Visit [facility] [address] [place] [address] Jonas Mehta MD [address] [place] [address] [email or web address] documented as of this encounter Procedures Procedure Name Priority Date/Time Associated Diagnosis Comments XR CHEST PA AND LATERAL 2 VIEWS Urgent/patient waiting 07/09/2023 6:01 PM EDT Acute cough documented in this encounter Results * XR CHEST PA AND LATERAL 2 VIEWS (07/09/2023 6:01 PM EDT) Anatomical Region Laterality Modality Chest Computed Radiogr aphy 07/09/2023 6:11 PM EDT Impressions 07/09/2023 6:17 PM EDT No acute abnormality. ATTESTATION: I, Blanco Talley as teaching physician, have reviewed the images for this case and if necessary edited the report originally created by Dr. Armin De La Cruz. Narrative 07/09/2023 6:17 PM EDT XR CHEST PA AND LATERAL 2 VIEWS COMPARISON: XR CHEST PA AND LATERAL 2 VIEWS ; XR CHEST PA AND LATERAL 2 VIEWS FINDINGS: Devices/Tubes/Lines: None. Lungs: No focal consolidation or pulmonary edema. Pleura: No pleural effusion or pneumothorax. Heart/Mediastinum: Unchanged in appearance. Bones/Soft Tissues: No displaced rib fractures. Procedure Note Blanco Talley MD, MPH - 07/09/2023 XR CHEST PA AND LATERAL 2 VIEWS COMPARISON: XR CHEST PA AND LATERAL 2 VIEWS ; XR CHEST PA ANDLATERAL 2 VIEWS FINDINGS: Devices/Tubes/Lines: None. Lungs: No focal consolidation or pulmonary edema. Pleura: No pleural effusion or pneumothorax. Heart/Mediastinum: Unchanged in appearance. Bones/Soft Tissues: No displaced rib fractures. IMPRESSION: No acute abnormality. ATTESTATION: I, Blanco Talley as teaching physician, have reviewed theimages for this case and if necessary edited the report originally createdby Dr. Armin De La Cruz. Cris Loza PA-C, MS IMG XR CHEST Fi nal Result documented in this encounter Visit Diagnoses Not on filedocumented in this encounter Additional Health Concerns Infection Onset Date Last Indicated Resolved Time CoV-Risk 06/20/2024 06/20/2024 07/01/2024 1:23 AM EDT documented as of this encounter Care Teams Binding Bench Worker Relationship Specialty Start Date End Date Kulwinder Vieira MD [address] [place] [address] PCP - General Internal Medicine 03/12/16 06/19/24 documented as of this encounter Additional Source Comments The information contained in this document represents components of the legal health record. It is not the complete legal health record.[facility]
--- OUTSIDE RECORDS SUMMARY | 2024-08-26 12:52 | XMS_ITS | Encounter Summary ---
Author Organization [facility] Address [address] [address] Phone Care Team Providers Care Printing Machine Mechanic Name Role Phone Juan Stone BUSINESS DEVELOPMENT SALES EXECUTIVE Primary Care Provider [phone] Encounter Details Date Type Department Care Team (Late st Contact Info) Description 08/26/2024 11:52 AM EST Hospital Encounter [facility] [address] [place] [phone] Isabella Barahona, NAIN [address] [place] [address] Social History Tobacco Use Types Packs/Day Years [...] Description 08/20/2025 11:00 AM EST Office Visit [facility] Rheumatology [address] [place] [address] Paty Bello DO 22 [facility], [address] [place] [address] 04/02/2026 12:40 PM EDT Office Visit [facility] [address] [place] [address] Jonas Mehta MD [address] [place] [address] [email or web address] documented as of this encounter Procedures Procedure Name Priority Date/Time Associated Diagnosis Comments XR CHEST PA AND LATERAL 2 VIEWS Urgent/patient waiting 08/26/2024 11:58 AM EST Acute cough documented in this encounter Results * XR CHEST PA AND LATERAL 2 VIEWS (08/26/2024 11:58 AM EST) Anatomical Region Laterality Modality Chest Computed Radiogr aphy 08/26/2024 12:1 6 PM EST Impressions 08/26/2024 12:24 PM EST No acute abnormality. ATTESTATION: I, Ivanna Xie as teaching physician, have reviewed the images for this case and if necessary edited the report originally created by Pao Newton. Narrative 08/26/2024 12:24 PM EST XR CHEST PA AND LATERAL 2 VIEWS Referring clinician's provided indication for this examination in Epic: Cough COMPARISON: XR CHEST PA AND LATERAL 2 VIEWS FINDINGS: Devices/Tubes/Lines: None. Lungs: No focal consolidation or pulmonary edema. Pleura: No pleural effusion or pneumothorax. Heart/Mediastinum: Normal cardiomediastinal silhouette. Aortic calcifications. Bones/Soft Tissues: No significant skeletal abnormality. Procedure Note Ivanna Glass MD - 08/26/2024 XR CHEST PA AND LATERAL 2 VIEWS Referring clinician's provided indication for this examination in Epic:Cough COMPARISON: XR CHEST PA AND LATERAL 2 VIEWS FINDINGS: Devices/Tubes/Lines: None. Lungs: No focal consolidation or pulmonary edema. Pleura: No pleural effusion or pneumothorax. Heart/Mediastinum: Normal cardiomediastinal silhouette. Aorticcalcifications. Bones/Soft Tissues: No significant skeletal abnormality. IMPRESSION: No acute abnormality. ATTESTATION: I, Ivanna Xie as teaching physician, have reviewed theimages for this case and if necessary edited the report originally createdby Pao Newton. Isabella Barahona BUSINESS DEVELOPMENT SALES EXECUTIVE IMG XR CHEST Final Resu lt documented in this encounter Visit Diagnoses Not on filedocumented in this encounter Care Teams Printing Machine Mechanic Relationship Specialty Start Date End Date Juan Stone NP [address] [place] [address] PCP - General Nurse Practitioner 06/20/24 documented as of this encounter Additional Source Comments The information contained in this document represents components of the legal health record. It is not the complete legal health record.[facility]
--- OUTSIDE RECORDS SUMMARY | 2025-02-07 10:30 | XMS_ITS | Encounter Summary ---
Author Organization [facility] Address [address] [facility] [address] [place] [address] Phone Care Team Providers Care Fire Tender Name Role Phone Juan Stone VAC PRESS OPERATOR Primary Care Provider [phone] Encounter Details Date Type Department Care Team (Late st Contact Info) Description 02/07/2025 10:30 AM EDT Hospital Encounter [facility] [address] [place] [address] Isabella Barahona, NAIN [address] [place] [address] Social History Tobacco Use Types Packs/Day Years [...] 08/20/2025 11:00 AM EST Office Visit [facility] Rheumatology [address] [place] [address] Paty Bello DO [address] [facility], [address] [place] [address] 04/02/2026 12:40 PM EDT Office Visit [facility] [address] [place] [address] Jonas Mehta MD [address] [place] [address] [email or web address] documented as of this encounter Procedures [...] on filedocumented in this encounter Care Teams Fire Tender Relationship Specialty Start Date End Date Juan Stone NP [address] [place] [address] PCP - General Nurse Practitioner 06/20/24 documented as of this encounter Additional Source Comments The information contained in this document represents components of the legal health record. It is not the complete legal health record.[facility]
--- NOTE | ~2025-07-20 | CT_ITS ---
EXAMINATION: CT CHEST WITHOUT CONTRAST CLINICAL INFORMATION: Solitary pulmonary nodule. R 91.1 COMPARISON: June 22, 2024. TECHNIQUE: Multidetector volumetric CT imaging of the chest was done. Axial MIP volume rendering provided. Sagittal and coronal reformatted images were obtained. This CT examination was performed using dose optimization techniques as appropriate, variously including the following: *Automated exposure control *Adjustment of mA and/or kV according to patient size (this includes techniques or standardized protocols for targeted exams where dose is matched to indication/reason for exam; i.e. extremities or head) *Use of iterative reconstruction technique DLP: 126 mGy centimeter. FINDINGS: JDE DEVELOPER: Patient's large body habitus. Bilateral breast prosthesis. S-shaped curvature of the thoracolumbar spine. Cardiomediastinal silhouette size is normal. Satisfactory inspiration. Both upper extremities at the size of the head. LUNGS: 1 mm less conspicuous noncalcified pulmonary nodule, anterior segment right upper lung lobe. Subcentimeter, subpleural calcified pulmonary nodules, right lower lung lobe. No gross consolidation. Bilateral apical lung scarring. No gross honeycombing or bronchiectasis. Respiratory airways is patent. MEDIASTINUM: No specific prominent less than 9 mm mediastinal lymph nodes. Calcified plaques throughout the thoracic aorta its main branches. No gross aneurysm, thoracic aorta. Calcified plaques in the mitral valve. The aortic valve. Heart is not enlarged. No gross pericardial effusion. No pneumomediastinum. Thyroid gland is not enlarged. CORONARY ARTERY CALCIFICATION: Calcified plaques. PLEURA: No pleural effusion. No pneumothorax. No calcified pleural plaques. AXILLA: No lymphadenopathy. UPPER ABDOMEN: Small hiatal hernia. Punctate calcifications in the left kidney. Calcified plaque abdominal aorta wall. Soft tissue fullness without nodular lesions in the adrenal gland. Subtle nodular surface of the liver. Contracted gallbladder. OSSEOUS STRUCTURES: Multilevel spondylosis and dextroconvex scoliosis mid thoracic spine. No acute fracture or listhesis. Osteopenia versus osteoporosis. Sternum is intact. No acute rib fracture. Degenerative changes in the right shoulder and to a lesser extent left acromioclavicular joint. Stable morphology of the bilateral breast implants. CT/CT chest wo IV con IMPRESSION: Overall less conspicuous, currently 1 mm noncalcified pulmonary nodule, right upper lung lobe. No other change. Fleischner guidelines were followed. Electronically signed by: David Lyman MD 07/20/2025 09:35 AM EDT
--- OUTSIDE RECORDS SUMMARY | 2025-07-20 09:03 | XMS_ITS | Clinical Summary ---
Author Organization [facility] Address [address] [place] [address] Phone Care Team Providers Care Well Logging Captain Mud Analysis Name Role Phone Juan Stone NP Primary Care Provider [phone] Allergies Active Allergy Reactions Criticality Noted Date [...] under the skin every 14 (fourteen) days. Active albuterol 90 mcg/actuation inhaler Inhale 2 puffs into the lungs every 6 (six) hours as needed. 6.7 g 4 Active leflunomide (ARAVA) 20 MG tabletIndicatio ns:Rheumatoid arthritis involving multiple sites with positive rheumatoid factor Take 1 tablet (20 mg total) by mouth daily. 90 tablet 5 Active leflunomide (ARAVA) 20 MG tabletIndicatio ns:Rheumatoid arthritis involving multiple sites with positive rheumatoid factor Take 1 tablet (20 mg total) by mouth daily. 90 tablet 1 5 07/12/20 25 Discontinu ed(Reorder ) Hospital, Clinic, or Other Facility Administered Medication [...] Encounters Date Type Department Care Team Description 07/12/2025 Refill [facility] Rheumatology [address] [place] [address] [place] [address] Karla Esparza CMA Medication Refill 07/05/2025 Telephone [facility] Rheumatology [address] [place] [address] [place] [address] Paty Bello DO Pt Called Back 07/03/2025 Telephone [facility] Rheumatology [address] [place] [address] Grisel Chacon MD, MPH Appointment 05/02/2025 Telephone [facility] Rheumatology [address] [place] [address] Pamela Burns MD FUV with new provider 05/01/2025 11:52 AM EDT - 05/01/2025 11:59 PM EDT Hospital Encounter [facility] [address] [place] [address] Pamela Burns MD Discharge Disposition: Home or Self Care 05/01/2025 11:30 AM EDT Office Visit [facility] Rheumatology [address] [place] [address] [place] [address] Pamela Burns MD 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); Encounter for monitoring leflunomide therapy; Adalimumab (Humira) long-term use; shelter current use of systemic steroids; Primary osteoarthritis [...] Description 08/20/2025 11:00 AM EST Office Visit [facility] Rheumatology [address] [place] [address] Paty Bello DO [address] [place] [address], [address] [place] [address] 04/02/2026 12:40 PM EDT Office Visit [facility] [address] [facility] [address]th [place] [address] Jonas Mehta MD [address] [place] [address] [email or web address] Health Maintenance Due Date Last Done Comments [...] EDT) SODIUM 140 133 - 146 mmol/L [facility] POTASSIUM 4.4 3.3 - 5.1 mmol/L [facility] CHLORIDE 105 96 - 108 mmol/L [facility] CO2 24 21 - 35 mmol/L [facility] BUN 14 6 - 19 mg/dL [facility] CREATININE 0.50 0.5 - 1.5 mg/dL [facility] GLUCOSE 95 70 - 99 mg/dL [facility] ALBUMIN 4.1 3.9 - 4.8 g/dL [facility] TOTAL PROTEIN 6.8 6.5 - 8.0 g/dL [facility] CALCIUM 10.2 8.4 - 10.3 mg/dL [facility] ALKALINE PHOSPHATASE 136(H) 39 - 117 U/L [facility] TOTAL BILIRUBIN 0.3 0.0 - 1.2 mg/dL [facility] AST 29 0 - 37 U/L [facility] ALT 12 0 - 40 U/L [facility] GLOBULIN 2.7 1 - 4.8 g/dL [facility] EGFR 93 >59 mL/min/1.7 3m2 [facility] Comment:Estimated glomerular filtration rate calculated using the CKD-EPI refit equation. ANION GAP 15 10 - 20 mmol/L [facility] Blood 05/01/2025 12:0 2 PM EDT 05/01/2025 12:10 PM EDT us Pamela Burns MD LAB BLOOD ORDERABLES Final Res ult Performing Organization Address City/[facility] Co de Phone Number [address] [address] * Sedimentation rate (ESR) (05/01/2025 12:02 PM EDT) ESR 6 0 - 30 mm/h [facility] Blood 05/01/2025 12:0 2 PM EDT 05/01/2025 12:10 PM EDT Pamela Burns MD LAB BLOOD ORDERABLES Final Res ult Performing Organization Address [facility] Co de Phone Number [address] [address] * CBC (05/01/2025 12:02 PM EDT) WBC 7.09 4.00 - 11.00 K/uL [facility] RBC 4.14 4.00 - 5.20 M/uL [facility] HGB 12.3 12.0 - 16.0 g/dL [facility] HCT 37.8 36.0 - 46.0 % [facility] PLT 227 150 - 450 K/uL [facility] MCV 91.3 80.0 - 100.0 fL [facility] MCH 29.7 27.0 - 31.0 pg [facility] MCHC 32.5 32.0 - 36.0 g/dL [facility] RDW 13.2 11.5 - 14.5 % [facility] MPV 11.8 8.4 - 12.0 fL [facility] NRBC 0.00 0.00 /100 WBCs [facility] ABSOLUTE NRBC 0.00 0.00 K/uL [facility] Blood 05/01/2025 12:0 2 PM EDT 05/01/2025 12:10 PM EDT us Pamela Burns MD LAB BLOOD ORDERABLES Final Res ult [address] [address] * C-Reactive Protein (05/01/2025 12:02 PM EDT) C REACTIVE PROTEIN <3.0 0.0 - 4.0 mg/L [facility] Blood 05/01/2025 12:0 2 PM EDT 05/01/2025 12:10 PM EDT us Pamela Burns MD LAB BLOOD ORDERABLES Final Res ult [address] [address] from Last 3 Months Insurance MEDICARE RAILROAD Member Subscriber Plan / Payer (Ef fective 2006-Present) Name:Franc Pappasraine Member ID:[id number] Relation to Subscriber:Self Name:Franc Pappasine Subscriber ID:[id number] Payer ID:[id number] Group ID:Not on file Type:Medicare Address: [address] HEALTHCARE INDEMNITY MEDICARE RAILROAD [employer] INDEMNITY MEDICARE RAILROAD Member Subscriber Plan / Payer (Ef fective 2006-Present) Name:Franc Pappas Member ID:[id number] Relation to Subscriber:Self Name:Franc Pappas Subscriber ID:[id number] Payer ID:[id number] Group ID:Not on file Type:Medicare Address: [address] INDEMNITY MEDICARE RAILROAD [facility] INDEMNITY MEDICARE RAILROAD [facility] INDEMNITY MEDICARE RAILROAD [facility] INDEMNITY MEDICARE RAILROAD [facility] INDEMNITY MEDICARE RAILROAD Member Subscriber Plan / Payer ( fective 2006-Present) Name:Franc Pappas Merlene Member ID:[id number] Relation to Subscriber:Self Name:Franc Pappas Subscriber ID:[id number] Payer ID:[id number] Group ID:Not on file Type:Medicare Address: [address] INDEMNITY MEDICARE RAILROAD [facility] INDEMNI Care Teams Well Logging Captain Mud Analysis Relationship Specialty Start Date End Date Juan Stone NP [address] [place] [address] PCP - General Nurse Practitioner 06/20/24 Additional Source Comments The information contained in this document represents components of the legal health record. It is not the complete legal health record.[facility]
--- OUTSIDE RECORDS SUMMARY | 2025-07-20 09:03 | XMS_ITS | Clinical Summary ---
Author Organization [facility] Address [address] [place] [id number] Phone Care Team Providers Care Email Operations Manager Name Role Phone Juan Stone NP Primary Care Provider [phone] Social History Tobacco Use Types Packs/Day Years Used Date Smoking Tobacco: Never Assessed Comments Unknown Sex and Gender Information Value Date Recorded Sex Assigned at Not on file Legal Sex Female 1:08 AM EST Gender Identity Not on file Sexual Orientation Not on file Plan of Treatment Health Maintenance Due Date Last Done Comments Pneumococcal Vaccine: 50+ Years (1 of 1 - PCV) 1991 Zoster Vaccines (1 of 2) 1991 RSV Immunization Adult Patients (1 - 1-dose 75+ series) 2016 DTaP,Tdap,and Td Vaccines (2 - Td or Tdap) 01/19/2021 01/19/2011 Cholesterol Screening (Lipid Panel) 09/20/2022 Falls Risk Assessment 09/20/2022 Osteoporosis Screening (Bone Density Screening) 09/20/2022 Social Influencers of Health Screening 09/20/2022 Depression Screening 10/18/2024 COVID-19 Vaccine (1 - 2023-2 5 season) 2025 Influenza Vaccine (#1) 2025 9, 07/22/2018, 08/10/2017 [...] age to complete this topic Insurance MEDICARE [facility] TIARA CASTANEDA [id number] Care Teams Email Operations Manager Relationship Specialty Start Date End Date Juan Stone NP [facility] [address] [address] PCP - General Nurse Practitioner 09/20/24
--- OUTSIDE RECORDS SUMMARY | 2025-07-20 09:04 | XMS_ITS | Encounter Summary ---
Author Organization [facility] Address [address] [place] [address] [address] [place] [address] Phone Care Team Providers Care Lab Director Name Role Phone Kulwinder Vieira MD Primary Care Provider + [phone] Juan Stone NP Primary Care Provider + [phone] Encounter Details Date Type Department Care Team (Latest Contact Info) Description 04/14/2019 Transcribe Orders [facility] [address] [place] [id number] Lizzy Castillo PA-C [address] [place] [phone] Diarrhea, unspecified type (Primary Dx) Social History [...] Description 08/20/2025 11:00 AM EST Office Visit [facility] Rheumatology [address] [place] [address] Paty Bello, DO [address] [facility], [address] [place] [address] 04/02/2026 12:40 PM EDT Office Visit [facility] [address] [facility] 12th [place] [address] Jonas Mehta MD [address] [place] [address] [email or web address] documented as of this encounter Results * C. DIFFICILE PCR (04/14/2019 9:54 AM EDT) C.DIFFICILE PCR Negative Negative [facility] C.DIFFICILE STRAIN PRESUMPTIVE NEGATIVE PRESUMPTIVE NEGATIVE [facility] Comment:Detection of 027/NAP 1/BI strains of C.difficile is presumptive and is solely for epidemiological purposes and is not intended to guide or monitor treatment of infections. Stool (Stool) 04/14/2019 9:5 4 AM EDT 04/14/2019 9:55 AM EDT Lizzy Castillo PA-C MICROBIOLOGY - GENERAL ORD ERABLES Final Result Performing Organization Address City/State/[facility] Co de Phone Number [facility] [address] [place] [address] documented in this encounter Visit Diagnoses Diagnosis Diarrhea, unspecified type- Primary documented in this encounter Additional Health Concerns Infection Onset Date Last Indicated Resolved Time CoV-Risk 04/06/2021 04/06/2021 04/16/2021 1:24 AM EDT CoV-Risk 06/20/2024 06/20/2024 07/01/2024 1:23 AM EDT documented as of this encounter Care Teams Lab Director Relationship Specialty Start Date End Date Kulwinder Vieira MD [address] [address] PCP - General Internal Medicine 03/12/16 06/19/24 Juan Stone NP [address] [place] [address] PCP - General Nurse Practitioner 06/20/24 documented as of this encounter Additional Source Comments The information contained in this document represents components of the legal health record. It is not the complete legal health record.[facility]
== END 2025-07-20 08:43 | disposition home or self-care (01) ==
LOC: HO.CT 08:42
PROVIDERS: PCP Nurse Practitioner; Visit Provider Hospitalist
DX: R91.1 Solitary pulmonary nodule (principal)
CPT/HCPCS: 71250

== ENCOUNTER → 2025-07-20 08:43 | Outpatient (BNV) | payer MEDICARE, OTHER, SELFPAY | PROVIDERS: PCP Nurse Practitioner; Visit Provider Radiology Diagnostic Radiology | DX: R91.1 Solitary pulmonary nodule (principal) | CPT/HCPCS: 71250 ==

== ENCOUNTER 2025-08-01 11:11 | Outpatient (AMB) | payer MEDICARE, OTHER, SELFPAY ==
--- OUTSIDE RECORDS SUMMARY | 2019-09-19 13:25 | XMS_ITS | Encounter Summary ---
Author Organization Located Within [facility] Address [address] [place] [address] Phone Care Team Providers Care Ec Teacher Name Role Phone Ursula Vieira MD Primary Care Provider [phone] Encounter Details Date Type Department Care Team (Late st Contact Info) Description 09/19/2019 12:25 PM [facility] Hospital Encounter [facility] [address] [place] [address] Yoly Baez PA [address] [place] [address] Social History Tobacco Use Types Packs/Day Years Used Date Smoking Tobacco: Never Smokeless Tobacco: Never Alcohol Use Standard Drinks/Week Comments No 0 (1 standard drink = 0.6 oz pur e alcohol) Education Answer Date Recorded Are you interested in more education? Not on pooja e 02/12/2023 Are you concerned about learning? Not on file 02/12/2023 No 02/12/2023 No 02/12/2023 Digital Access Answer Date Recorded No 03/15/2023 No 03/15/2023 Reliable internet access at home? Not on file 03/15/2023 Device with a working camera? Not on file Comments Unknown Sex and Gender Information Value Date Recorded Sex Assigned at Female 10/25/2017 9:36 AM EST Legal Sex Female 9:56 AM EDT Gender Identity Female Sexual Orientation Straight documented as of this encounter Functional Status * Calculated C-SSRS Risk Score (Lifetime/Recent) Answer Date of Assessment Author No Risk Indicated 04/14/2021 3:34 PM EDT Burton Rivera, ASAEL * [place] Suicide Severity Rating Scale (Screener/Recent Self-Report) Question Answer Date of Assessment Author 1. Wish to be (Past 1 Month) No 04/14/2021 3:34 PM EDT Burton Rivas, ASAEL 2. Non-Specific Active Suicidal Thoughts (Past 1 Month) No 04/14/2021 3:34 PM EDT Burton Rivas, ASAEL 6. Suicidal Behavior (Lifetime) No 04/14/2021 3:34 PM EDT Burton Rivas, ASAEL documented as of this encounter Plan of Treatment Upcoming Encounters Date Type Department Care Team (Late st Contact Info) Description 08/20/2025 11:00 AM EST Office Visit [facility] Rheumatology [address] [place] [address] Paty Bello DO [address] [facility], [address] [place] [address] 04/02/2026 12:40 PM EDT Office Visit [facility] [address] [place] [address] Jonas Mehta MD [address] [place] [address] [email or web address] documented as of this encounter Procedures Procedure Name Priority Date/Time Associated Diagnosis Comments XR CHEST PA AND LATERAL 2 VIEWS Urgent/patient waiting 09/19/2019 12:35 PM EST Persistent cough documented in this encounter Results * XR CHEST PA AND LATERAL 2 VIEWS (09/19/2019 12:35 PM EST) Anatomical Region Laterality Modality Chest Radiographic Amee ging 09/19/2019 12:3 8 PM EST Impressions 09/19/2019 12:39 PM EST No evidence of active cardiopulmonary disease. POS [id number] Narrative 09/19/2019 12:39 PM EST No comparison studies are available. Frontal and lateral views reveal the lungs to be well-expanded and overall clear without focal infiltrates or pleural effusions present. The heart and pulmonary vessels are within normal limits in size and the visualized bony thorax appears intact. Procedure Note Ursula Flores MD - 09/19/2019 No comparison studies are available. Frontal and lateral views reveal thelungs to be well-expanded and overall clear without focal infiltrates orpleural effusions present. The heart and pulmonary vessels are withinnormal limits in size and the visualized bony thorax appears intact. IMPRESSION: No evidence of active cardiopulmonary disease. POS [id number] Yoly COOK IMG XR CHEST Final R esult documented in this encounter Visit Diagnoses Not on filedocumented in this encounter Additional Health Concerns Infection Onset Date Last Indicated Resolved Time CoV-Risk 04/06/2021 04/06/2021 04/16/2021 1:24 AM EDT CoV-Risk 06/20/2024 06/20/2024 07/01/2024 1:23 AM EDT documented as of this encounter Care Teams Ec Teacher Relationship Specialty Start Date End Date Ursula Vieira MD [address] [facility] [address] [place] [address] PCP - General Internal Medicine 03/12/16 06/19/24 documented as of this encounter Additional Source Comments The information contained in this document represents components of the legal health record. It is not the complete legal health record.[facility]
--- OUTSIDE RECORDS SUMMARY | 2021-04-06 10:08 | XMS_ITS | Encounter Summary ---
Author Organization [facility] Address [address] [place] [address] [place] [address] Phone Care Team Providers Care Victims Advocate Clerk/Specialist Name Role Phone Kulwinder Vieira MD Primary Care Provider [phone] [phone] Encounter Details Date Type Department Care Team (Late st Contact Info) Description 04/06/2021 10:08 AM EDT Hospital Encounter [facility] [address] [place] [address] Jj Pelaez PA [address] [place] [address] [email or web address] Social History Tobacco Use Types Packs/Day Years [...] 3:34 PM EDT Burton Rivera, ASAEL * [place] Suicide Severity Rating Scale (Screener/Recent Self-Report) Question [...] Description 08/20/2025 11:00 AM EST Office Visit [facility] Rheumatology [address] [place] [address] Paty Bello DO [address] [place] [address], [address] [place] [address] [email or web address] 04/02/2026 12:40 PM EDT Office Visit [facility] [address] [address] Jonas Mehta MD [address] [place] [address] [email or web address] documented as of this encounter Procedures Procedure Name Priority Date/Time Associated Diagnosis Comments XR CHEST PA AND LATERAL 2 VIEWS Urgent/patient waiting 04/06/2021 10:15 AM EDT Bronchitis documented in this encounter Results * XR CHEST PA AND LATERAL 2 VIEWS (04/06/2021 10:15 AM EDT) Anatomical Region Laterality Modality Chest Computed Radiogr aphy 04/06/2021 10:1 8 AM EDT Impressions 04/06/2021 10:21 AM EDT No acute abnormality. Narrative 04/06/2021 10:21 AM EDT Reason for exam (per EHR order): * Cough, persistent; cough x2 wks, eval for pna TECHNIQUE: Frontal and lateral radiographs of the chest. COMPARISON: September 19, 2019 FINDINGS: Support Devices / Implants / Lines and Tubes: None. Lungs and Pleura: No focal consolidation, pulmonary edema, pleural effusion or pneumothorax. Cardiomediastinal Silhouette: Normal. Miscellaneous Findings: None. Procedure Note Олег Mcneal MD - 04/06/2021 Reason for exam (per EHR order): * Cough, persistent; cough x2 wks, evalfor pna TECHNIQUE: Frontal and lateral radiographs of the chest. COMPARISON: September 19, 2019 FINDINGS: Support Devices / Implants / Lines and Tubes: None. Lungs and Pleura: No focal consolidation, pulmonary edema, pleuraleffusion or pneumothorax. Cardiomediastinal Silhouette: Normal. Miscellaneous Findings: None. IMPRESSION: No acute abnormality. Jj COOK IMG XR CHEST Final Resul t documented in this encounter Visit Diagnoses Not on filedocumented in this encounter Additional Health Concerns Infection Onset Date Last Indicated Resolved Time CoV-Risk 04/06/2021 04/06/2021 04/16/2021 1:24 AM EDT CoV-Risk 06/20/2024 06/20/2024 07/01/2024 1:23 AM EDT documented as of this encounter Care Teams Victims Advocate Clerk/Specialist Relationship Specialty Start Date End Date Kulwinder Vieira MD [address] [place] [address] PCP - General Internal Medicine 03/12/16 06/19/24 documented as of this encounter Additional Source Comments The information contained in this document represents components of the legal health record. It is not the complete legal health record.[facility]
--- OUTSIDE RECORDS SUMMARY | 2023-07-09 17:59 | XMS_ITS | Encounter Summary ---
Author Organization [facility] Address [address] [place] [address] Phone Care Team Providers Care Tankman Name Role Phone Kulwinder Vieira MD Primary Care Provider [phone] Encounter Details Date Type Department Care Team (Late st Contact Info) Description 07/09/2023 5:59 PM EDT Hospital Encounter [facility] [address] [place] [id number] Cris Loza PA-C, MS [address] [place] [address] Social History Tobacco Use Types Packs/Day Years [...] Description 08/20/2025 11:00 AM EST Office Visit [facility] Rheumatology [address] [place] [address] Paty Bello, [address] [facility], [address] [place] [address] 04/02/2026 12:40 PM EDT Office Visit [facility] [address] [place] [address] Jonas Mehta MD [address] [place] [address] [email or web address] documented as of this encounter Procedures [...] documented as of this encounter Care Teams Tankman Relationship Specialty Start Date End Date Kulwinder Vieira MD [address] [place] [address] PCP - General Internal Medicine 03/12/16 06/19/24 documented as of this encounter Additional Source Comments The information contained in this document represents components of the legal health record. It is not the complete legal health record.[facility]
--- OUTSIDE RECORDS SUMMARY | 2024-08-26 12:52 | XMS_ITS | Encounter Summary ---
Author Organization [facility] Address [address] [address] Phone Care Team Providers Care Occupational Medicine Specialist Name Role Phone Juan Stone PEEL OVEN TENDER Primary Care Provider [phone] Encounter Details Date Type Department Care Team (Late st Contact Info) Description 08/26/2024 11:52 AM EST Hospital Encounter [facility] [address] [place] [phone] Isabella Barahona, NAIN [address] [place] [address] Social History Tobacco Use Types Packs/Day Years [...] 08/20/2025 11:00 AM EST Office Visit [facility] Rheumatology [address] [place] [address] Paty Bello DO 22 [facility], [address] [place] [address] 04/02/2026 12:40 PM EDT Office Visit [facility] [address] [place] [address] Jonas Mehta MD [address] [place] [address] [email or web address] documented as of this encounter Procedures [...] report originally createdby Pao Newton. Isabella Barahona PEEL OVEN TENDER IMG XR CHEST Final Resu lt documented in this encounter Visit Diagnoses Not on filedocumented in this encounter Care Teams Occupational Medicine Specialist Relationship Specialty Start Date End Date Juan Stone NP [address] [place] [address] PCP - General Nurse Practitioner 06/20/24 documented as of this encounter Additional Source Comments The information contained in this document represents components of the legal health record. It is not the complete legal health record.[facility]
--- OUTSIDE RECORDS SUMMARY | 2025-02-07 10:30 | XMS_ITS | Encounter Summary ---
Author Organization [facility] Address [address] [facility] [address] [place] [address] Phone Care Team Providers Care Education Diagnostician Name Role Phone Juan Stone CLIENT INTEGRATION MANAGER Primary Care Provider [phone] Encounter Details Date Type Department Care Team (Late st Contact Info) Description 02/07/2025 10:30 AM EDT Hospital Encounter [facility] [address] [place] [address] Isabella Barahona, NAIN [address] [place] [address] [email or web address] Social History Tobacco Use Types Packs/Day Years [...] 08/20/2025 11:00 AM EST Office Visit [facility] Rheumatology [address] [place] [address] Paty Bello DO [address] [facility], [address] [place] [address] [email or web address] 04/02/2026 12:40 PM EDT Office Visit [facility] [address] [place] [address] Jonas Mehta MD [address] [place] [address] [email or web address] as of this encounter Procedures Procedure Name Priority Date/Time Associated Diagnosis Comments XR CHEST PA AND LATERAL 2 VIEWS Urgent/patient waiting 02/07/2025 10:37 AM EDT Sore throat documented in this encounter Results * XR CHEST PA AND LATERAL 2 VIEWS (02/07/2025 10:37 AM EDT) Anatomical Region Laterality Modality Chest Computed Radiogr aphy 02/07/2025 10:5 2 AM EDT Impressions 02/07/2025 10:55 AM EDT Progressive anterior right middle lobe opacification. Given the elevation of the diaphragm this likely represents worsening atelectasis. A combination of atelectasis and pneumonia would have a similar appearance. Narrative 02/07/2025 10:55 AM EDT XR CHEST PA AND LATERAL 2 VIEWS Referring clinician's provided indication for this examination in Epic: Cough COMPARISON: XR CHEST PA AND LATERAL 2 VIEWS FINDINGS: Devices/Tubes/Lines: None. Lungs: There is increased density involving the medial segment right middle lobe anteriorly, associated with elevation of the right hemidiaphragm. This appears chronic, slightly progressive. Lungs appear otherwise clear. There is no pulmonary edema. Pleura: Normal. No pleural effusion or pneumothorax. Heart/Mediastinum: Normal heart and mediastinum. Bones/Soft Tissues: Normal. No significant skeletal abnormality. Procedure Note Hieu Boateng MD - 02/07/2025 XR CHEST PA AND LATERAL 2 VIEWS Referring clinician's provided indication for this examination in Epic:Cough COMPARISON: XR CHEST PA AND LATERAL 2 VIEWS FINDINGS: Devices/Tubes/Lines: None. Lungs: There is increased density involving the medial segment rightmiddle lobe anteriorly, associated with elevation of the righthemidiaphragm. This appears chronic, slightly progressive. Lungs appearotherwise clear. There is no pulmonary edema. Pleura: Normal. No pleural effusion or pneumothorax. Heart/Mediastinum: Normal heart and mediastinum. Bones/Soft Tissues: Normal. No significant skeletal abnormality. IMPRESSION: Progressive anterior right middle lobe opacification. Given the elevationof the diaphragm this likely represents worsening atelectasis. Acombination of atelectasis and pneumonia would have a similarappearance. Isabella Barahona NP IMG XR CHEST Final Resu lt documented in this encounter Visit Diagnoses Not on filedocumented in this encounter Care Teams Education Diagnostician Relationship Specialty Start Date End Date Juan Stone NP [address] [place] [address] PCP - General Nurse Practitioner 06/20/24 documented as of this encounter Additional Source Comments The information contained in this document represents components of the legal health record. It is not the complete legal health record.[facility]
--- NOTE | 2025-08-01 11:27 | MHC.OFFVIS ---
Vital Signs 08/01/25 11:29 Height 5 ft 5 in Weight 137 lb 12.623 oz BMI 22.9 BP 124/62 Blood Pressure Location Lt brachial Position Sitting Pulse 83 Pulse Source Pulse Oximeter Pulse Oximetry (%) 93 Oxygen Delivery Method Room Air Intake Visit Reasons: Dyspnea Power Screwdriver Operator Required: No Accompanied by: Self / Same As Patient Allergies naproxen (From NAPROSYN) Allergy (Unknown, Verified 08/01/25 11:31) GI UPSET HPI Comments Details: The patient is a 84-year-old woman with a known history of rheumatoid arthritis in addition to hiatal hernia who apparently this summer started developing worsening chest congestion and chest tightness. She was evaluated multiple times. She was tested negative for COVID. She required cortical steroid therapy. Ultimately also required antibiotics. After several months of dealing with this her symptoms are now improved and she is back to her baseline. It was positive sick contacts of the time. Denies any fevers or chills. Based on the worsening symptoms it was recommended that she follow-up with Pulmonary. Currently she is doing well she is not using any respiratory medicines. 04/06/2022 the patient is here for a pulmonary follow-up visit. She continues to have significant dyspnea with minimal activity. Moderate severity. Very limiting as far as her ability to function. She has noticed increased heart rate. We did go for brief 6 minute walk test and she maintain a pulse ox of 98%. However, heart rate went up to 115 and the patient was visibly dyspneic with a dyspnea score of 5 at a time. Patient did rest and her symptoms improved. Her last echocardiogram was approximately 2 years ago. She does have a history of connective tissue diseases. Therefore pulmonary vascular conditions need to be considered. The patient did undergo pulmonary function studies also demonstrating a decrease in her diffusing capacity suggesting underlying pulmonary vascular conditions and or parenchymal disease. The patient had a low normal total lung capacity. She also has evidence of snoring documented by has been. Also apneic episodes. She does have some fatigue and daytime drowsiness with an Petersburg score elevated at 12 over 24. I will request a home sleep study at this time. In addition to that we will do blood work in addition to a D-dimer to assess her risk for thromboembolic disease. indeed her D-dimer came back positive therefore will go ahead and order a CTA to rule out the possibility of thromboembolic disease. The patient also has had the increased heart rate issue. I did speak to her cardiology is briefly and will go ahead and order an echocardiogram at this time. 05/29/2022 the patient is here for a pulmonary follow-up visit. She is feeling better. Still has minimal dyspnea with exertion. We did review her CTA. She has small subcentimeter pulmonary nodule that will need follow-up. Otherwise no evidence of any thromboembolic disease. No other parenchymal disease. Patient also had a sleep study demonstrating no evidence of any sleep apnea. Therefore no clear explanation for the decrease in the diffusing capacity. Hemoglobin stable. The patient does have some diastolic dysfunction. She is already on cardioprotective medications. No further medical interventions at this time will have her follow-up in a year's time with PFTs and a CT scan. If she has any issues prior to that she is to call the office for an earlier assessment. 11/23/2022 the patient is here for a pulmonary follow-up visit. The patient continues to do well. She has not had to use her maintenance inhaler or any rescue medication. Denies any significant shortness of breath. The patient did have a CT scan of the chest with the summer in March 2022 demonstrating small subcentimeter pulmonary nodules. The plan will be to repeat the CT scan around a year from her last 1. the patient does continue the Humira with good response without any significant pulmonary manifestations. She continues with reflux diet and also on the PPI for her known hiatal hernia and reflux disease. Initial montero the patient feels a lot better after she was given vitamin B12. she will follow-up with the [facility] regarding the low cortisol levels. And she also continue to follow closely with rheumatology. 12/21/2023 the patient is here for a pulmonary follow-up visit. Overall the patient has been doing fairly well. She continues have a cough. The cough is moderate severe. tends to be intermittent and not productive. She has been evaluated by multiple specialties including ENT and GI. She does have significant reflux disease. She is already on a PPI. We did talk about the importance of the reflux diet and also sleeping with the head of bed elevated. She is going to look into bed risers for the head of the bed. She also needs to be careful with the mid night snacks. She should keep them to minimum. She did have a CT scan of chest which we personally reviewed back over the summer 2022. She does have pulmonary nodules. She does have a high risk history of cancer. Her brother recently of lung cancer so therefore she is very concerned. Will plan to repeat her CT scan again in 6 months. If the patient develops any worsening symptoms she will call for an earlier assessment. Otherwise will provide her with the benzonatate cough medication that she can try as needed. 08/01/2024 the patient is here for a pulmonary follow-up visit. Overall she is doing well from a respiratory status. The patient did have a recent CT scan of the chest which we personally reviewed. Pulmonary nodules appear to be stable. Will follow-up in a year's time. In the meantime she does complaint of cough and hoarseness. She does have underlying reflux disease. The patient does have a hiatal hernia. Explained to her the issues with the constant reflux disease affecting her pharynx and also laryngeal penetration. The patient still is on a PPI. She has not followed the reflux recommendations however. I did recommend she sleep with the head of elevated and time minimize eating close to the bedtime. The patient already had an ENT evaluation with laryngoscopy demonstrating no significant findings. She also has a postnasal drip with some cobblestoning and she does have a nasal spray that she has use. if the symptoms persist patient can always call and we can also make a referral again to ENT. In the meantime her CT scan is reassuring without any significant abnormalities noted, although, We are still waiting for the final read. 04/16/2025 the patient is here for a pulmonary follow-up visit. She had been admitted to the hospital after developing worsening respiratory symptoms. Initially the patient did go to an urgent care where she was diagnosed with bronchitis and pneumonia and she was treated with antibiotics. Subsequently after that she started developing worsening shortness of breath and cough and she went via ambulance to the hospital. She was found to be hypoxic and also having significant wheezing. She was thought to have an asthma or COPD exacerbation. She was treated with prednisone and also nebulized therapy. Now she is back to her baseline. She is wondering if she has a diagnosis of asthma. We did review her PFTs from 2021 demonstrating no evidence of obstructive nor restrictive disease Overall the patient has been doing okay she is still complaining of the hoarseness. Still bothering her. Will go ahead and start her on ipratropium nasal spray cases related postnasal drip. Also see about providing her Tessalon Perles in order for her to stop coughing therefore stopping to irritate that area. The patient will come back in the fall will have her undergo PFTs and also she is scheduled for CT scan to follow-up with her nodules done. 08/01/2025 the patient is here for pulmonary follow-up visit. Overall she is doing well from a respiratory status. Denies any significant shortness of breath. She has been going up a flight of stairs without any issues. The patient did have pulmonary function studies that I personally reviewed with her. Appears that she has a mild obstructive ventilatory defect consistent mild COPD. Also has a mild restriction with total lung capacity 79% predicted. We did talk about deep breathing exercises. She did undergo a CT scan of the chest that I personally reviewed with her. She does have some areas of scarring which may be accounting for the slight restriction. She also has pulmonary nodules. I did appreciate 1 nodule in the right lower lobe measuring about 2 mm in size that appeared to be little bit more prominent than before. Therefore, will repeat the CAT scan in a year's time. Otherwise patient is without any other complaints except that she is having some breast pain. There was a question of leakage of the silicone from her breast implants. She is going to have those replaced which I believe is a very good option right now. Clinically from a pulmonary standpoint the patient is doing well and may able to proceed with anesthesia and surgery at this time. [facility] Medical History Pulmonary nodule Rheumatoid arthritis Hiatal hernia Acute bronchitis with bronchospasm Chronic rhinitis Cough Palpitation POTS (postural orthostatic tachycardia syndrome) HLD (hyperlipidemia) HTN (hypertension) Surgical History Hx of knee surgery Family History Father Sudden cardiac CVD (cardiovascular disease) HTN (hypertension) Mother Diabetes Social History Patient Tobacco Use Status: Never used Tobacco Review of Systems Const Denies chills, Denies fatigue, Denies fever(s), Denies frequent falls, Denies snoring, Denies weakness, Denies weight gain and Denies weight loss ENT Reports change in voice, Reports dysphagia, Reports vertigo, Denies dizziness, Reports hoarseness and Reports nasal congestion Card Denies chest pain, Denies leg edema, Denies lightheadedness, Reports palpitations, Denies dyspnea, Reports dyspnea on exertion, Denies orthopnea and Denies other (loss of consciousness) Resp Reports cough, Denies dyspnea, Reports dyspnea on exertion and Denies snoring GI Denies hematochezia, Denies change in stool character, Reports dysphagia and Reports dyspepsia Musc Denies abnormal gait, Denies muscle weakness, Denies numbness, Denies radiating pain into limb and Denies tingling Neuro Denies abnormal gait, Reports vertigo, Denies dizziness, Denies frequent falls, Denies numbness, Denies tingling and Denies weakness Endo Denies fatigue and Reports palpitations Physical Exam Vital Signs: Last Vital Signs Pulse 83 08/01/25 11:29 BP 124/62 08/01/25 11:29 Pulse Ox 93 08/01/25 11:29 Oxygen Delivery Method Room Air 08/01/25 11:29 BMI result Body Mass Index 22.9 Const General: cooperative, comfortable, no acute distress, alert and awake Nutritional Appearance: thin and other (Frail elderly woman) Orientation/consciousness: patient oriented x3 Limitations: ambulation with cane HEENT Head: Yes normocephalic Neck Neck: Yes trachea midline and Yes supple Chest Chest palpation & inspection: normal inspection of the chest Resp Effort & Inspection: normal respiratory effort Auscultation: clear to auscultation bilaterally Cardio Rate: regular rate Rhythm: regular rhythm Heart sounds: S1 normal heart sound present and S2 normal heart sound present Neuro General: patient oriented x3 and no focal motor deficits Extrem General: Yes no clubbing, cyanosis or edema Psych Appearance: grossly normal Assessment & Plan Assessment & Plan (1) Cough: Code(s): R05.9 - Cough, unspecified Category: Medical Qualifiers: Cough type: chronic Qualified Code(s): R05.3 - Chronic cough Plan: Multifactorial: reflux, post nasal drip. RA may result in follicular bronchiolitis also resulting in on going respiratory symptoms. (2) Chronic rhinitis: Code(s): J31.0 - Chronic rhinitis Category: Medical (3) Hiatal hernia: Code(s): K44.9 - Diaphragmatic hernia without obstruction or gangrene Category: Medical (4) Dyspnea: Comment: better Code(s): R06.00 - Dyspnea, unspecified Category: Medical Qualifiers: Dyspnea type: dyspnea on exertion Qualified Code(s): R06.09 - Other forms of dyspnea (5) Pulmonary nodule: Code(s): R91.1 - Solitary pulmonary nodule Category: Medical Plan STACEY as needed reflux diet sleep with HOB elevated CT chest 12 months reflux diet sleep with HOB elevated Proceed with anesthesia and surgery from a pulmonary standpoint F/U 12 months Orders: Orders CT chest wo IV con 1 Year R91.1 - Solitary pulmonary nodule Coding Level of Care Code Est Pt Level 4 (79961) Complex EM visit Add On G2211 Diagnoses Chronic cough R05.3 Cough type: chronic Chronic rhinitis J31.0 Hiatal hernia K44.9 Dyspnea on exertion R06.09 Dyspnea type: dyspnea on exertion Pulmonary nodule R91.1 Time Spent (min) 17
[2025-08-01 11:29] VITALS: BP 124/62; PULSE 83; O2SAT 93; BMI 22.9
--- OUTSIDE RECORDS SUMMARY | 2025-08-01 13:48 | XMS_ITS | Encounter Summary ---
Author Organization [facility] Address [address] [place] [address] [address] [place] [address] Phone Care Team Providers Care Bid Analyst Name Role Phone Kulwinder Vieira MD Primary Care Provider + [phone] Juan Stone NP Primary Care Provider + [phone] Encounter Details Date Type Department Care Team (Latest Contact Info) Description 04/14/2019 Transcribe Orders [facility] [address] [place] [id number] Lizzy Castillo PA-C [address] [place] [phone] Diarrhea, unspecified type (Primary Dx) Social History [...] 08/20/2025 11:00 AM EST Office Visit [facility] Rheumatology [address] [place] [address] Paty Bello, DO [address] [facility], [address] [place] [address] 04/02/2026 12:40 PM EDT Office Visit [facility] [address] [facility] 12th [place] [address] Jonas Mehta MD [address] [place] [address] [email or web address] documented as of this encounter Results * C. DIFFICILE PCR (04/14/2019 9:54 AM EDT) C.DIFFICILE PCR Negative Negative [facility] C.DIFFICILE STRAIN PRESUMPTIVE NEGATIVE PRESUMPTIVE NEGATIVE [facility] Comment:Detection of 027/NAP 1/BI strains of C.difficile is presumptive and is solely for epidemiological purposes and is not intended to guide or monitor treatment of infections. Stool (Stool) 04/14/2019 9:5 4 AM EDT 04/14/2019 9:55 AM EDT Lizzy Castillo PA-C MICROBIOLOGY - GENERAL ORD ERABLES Final Result Performing Organization Address City/State/[facility] Co de Phone Number [facility] [address] [place] [address] documented in this encounter Visit Diagnoses Diagnosis Diarrhea, unspecified type- Primary documented in this encounter Additional Health Concerns Infection Onset Date Last Indicated Resolved Time CoV-Risk 04/06/2021 04/06/2021 04/16/2021 1:24 AM EDT CoV-Risk 06/20/2024 06/20/2024 07/01/2024 1:23 AM EDT documented as of this encounter Care Teams Bid Analyst Relationship Specialty Start Date End Date Kulwinder Vieira MD [address] [address] PCP - General Internal Medicine 03/12/16 06/19/24 Juan Stone NP [address] [place] [address] PCP - General Nurse Practitioner 06/20/24 documented as of this encounter Additional Source Comments The information contained in this document represents components of the legal health record. It is not the complete legal health record.[facility]
--- OUTSIDE RECORDS SUMMARY | 2025-08-01 13:48 | XMS_ITS | Clinical Summary ---
Author Organization [facility] Address [address] [place] [phone] Phone Care Team Providers Care Package Designer Name Role Phone Juan Stone NP Primary Care Provider [phone] Allergies Active Allergy Reactions Criticality Noted Date [...] Type Department Care Team Description 07/12/2025 Refill [facility] Rheumatology [address] [place] [address] [place] [address] Karla Esparza CMA Medication Refill 07/05/2025 Telephone [facility] Rheumatology [address] [place] [address] [place] [address] Paty Bello DO Pt Called Back 07/03/2025 Telephone [facility] Rheumatology [address] [place] [address] Grisel Chacon MD, MPH Appointment 05/02/2025 Telephone [facility] Rheumatology [address] [place] [address] Pamela Burns MD FUV with new provider 05/01/2025 11:52 AM EDT - 05/01/2025 11:59 PM EDT Hospital Encounter [facility] [address] [place] [address] Pamela Burns MD Discharge Disposition: Home or Self Care 05/01/2025 11:30 AM EDT Office Visit [facility] Rheumatology [address] [place] [address] [place] [address] Pamela Burns MD 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); Encounter for monitoring leflunomide therapy; Adalimumab (Humira) long-term use; [facility] current use of systemic steroids; Primary osteoarthritis [...] Description 08/20/2025 11:00 AM EST Office Visit [facility] Rheumatology [address] [place] [address] Paty Bello DO [address] [place] [address], [address] [place] [address] 04/02/2026 12:40 PM EDT Office Visit [facility] [address] [facility] 12th [place] [address] Jonas Mehta MD [address] [place] [phone] [email or web address] Health Maintenance Due Date Last Done Comments [...] EDT) SODIUM 140 133 - 146 mmol/L [facility] POTASSIUM 4.4 3.3 - 5.1 mmol/L [facility] CHLORIDE 105 96 - 108 mmol/L [facility] CO2 24 21 - 35 mmol/L [facility] BUN 14 6 - 19 mg/dL [facility] CREATININE 0.50 0.5 - 1.5 mg/dL [facility] GLUCOSE 95 70 - 99 mg/dL [facility] ALBUMIN 4.1 3.9 - 4.8 g/dL [facility] TOTAL PROTEIN 6.8 6.5 - 8.0 g/dL [facility] CALCIUM 10.2 8.4 - 10.3 mg/dL [facility] ALKALINE PHOSPHATASE 136(H) 39 - 117 U/L [facility] TOTAL BILIRUBIN 0.3 0.0 - 1.2 mg/dL [facility] AST 29 0 - 37 U/L [facility] ALT 12 0 - 40 U/L [facility] GLOBULIN 2.7 1 - 4.8 g/dL [facility] EGFR 93 >59 mL/min/1.7 3m2 [facility] Comment:Estimated glomerular filtration rate calculated using the CKD-EPI refit equation. ANION GAP 15 10 - 20 mmol/L [facility] Blood 05/01/2025 12:0 2 PM EDT 05/01/2025 12:10 PM EDT us Pamela Burns MD LAB BLOOD ORDERABLES Final Res ult Performing Organization Address City/[facility]/[facility] Co de Phone Number [address] [address] * Sedimentation rate (ESR) (05/01/2025 12:02 PM EDT) ESR 6 0 - 30 mm/h [facility] Blood 05/01/2025 12:0 2 PM EDT 05/01/2025 12:10 PM EDT Pamela Burns MD LAB BLOOD ORDERABLES Final Res ult Performing Organization Address [facility]/[facility] Co de Phone Number [address] [address] * CBC (05/01/2025 12:02 PM EDT) WBC 7.09 4.00 - 11.00 K/uL [facility] RBC 4.14 4.00 - 5.20 M/uL [facility] HGB 12.3 12.0 - 16.0 g/dL [facility] HCT 37.8 36.0 - 46.0 % [facility] PLT 227 150 - 450 K/uL [facility] MCV 91.3 80.0 - 100.0 fL [facility] MCH 29.7 27.0 - 31.0 pg [facility] MCHC 32.5 32.0 - 36.0 g/dL [facility] RDW 13.2 11.5 - 14.5 % [facility] MPV 11.8 8.4 - 12.0 fL [facility] NRBC 0.00 0.00 /100 WBCs [facility] ABSOLUTE NRBC 0.00 0.00 K/uL [facility] Blood 05/01/2025 12:0 2 PM EDT 05/01/2025 12:10 PM EDT us Pamela Burns MD LAB BLOOD ORDERABLES Final Res ult [address] [address] * C-Reactive Protein (05/01/2025 12:02 PM EDT) C REACTIVE PROTEIN <3.0 0.0 - 4.0 mg/L [facility] Blood 05/01/2025 12:0 2 PM EDT 05/01/2025 12:10 PM EDT us Pamela Burns MD LAB BLOOD ORDERABLES Final Res ult [address] [address] from Last 3 Months Insurance MEDICARE RAILROAD [employer] MED[employer] RAILROAD Member Subscriber Plan / Payer (Ef fective 2006-Present) Name:Franc Pappasraine Member ID:[id number] Relation to Subscriber:Self Name:Franc Pappasine Subscriber ID:[id number] Payer ID:[id number] Group ID:Not on file Type:Medicare Address: [place] [id number] [employer]ITY MEDICARE RAILROAD Member Subscriber Plan / Payer (Ef fective 2006-Present) Name:Franc Pappasine Member ID:[id number] Relation to Subscriber:Self Name:Franc Pappas Subscriber ID:[id number] Payer ID:[id number] Group ID:Not on file Type:Medicare Address: [address] INDEMNITY MEDICARE RAILROAD UNITED [employer]MNITY MEDICARE RAILROAD UNITED [employer]MNITY MEDICARE RAILROAD UNITED [employer]ITY MEDICARE RAILROAD Member Subscriber Plan / Payer (Ef fective 2006-Present) Name:Franc Pappsaraine Member ID:[id number] Relation to Subscriber:Self Name:Franc Pappas Subscriber ID:[id number] Payer ID:[id number] Group ID:Not on file Type:Medicare Address: [place] [id number] UNITED IN[employer]ITY MEDICARE RAILROAD Member Subscriber Plan / Payer (Ef fective 2006-Present) Name:Franc Pappasraine Member ID:[id number] Relation to Subscriber:Self Name:Franc Pappas Subscriber ID:[id number] Payer ID:[id number] Group ID:Not on file Type:Medicare Address: [address] INDEMNITY MEDICARE RAILROAD [facility] Care Teams Package Designer Relationship Specialty Start Date End Date Juan Stone NP [address] [facility] [place] [address] PCP - General Nurse Practitioner 06/20/24 Additional Source Comments The information contained in this document represents components of the legal health record. It is not the complete legal health record.[facility]
--- OUTSIDE RECORDS SUMMARY | 2025-08-01 13:48 | XMS_ITS | Clinical Summary ---
Author Organization [facility] Address [address] [place] [phone] Phone Care Team Providers Care Coat Operator Insulator Name Role Phone Juan Stone NP Primary Care Provider [phone] Social History Tobacco Use Types Packs/Day Years [...] age to complete this topic Insurance MEDICARE [facility] TIARA [place]STANEDA [id number] Care Teams Coat Operator Insulator Relationship Specialty Start Date End Date Juan Stone NP [facility] [address] [place] [address] PCP - General Nurse Practitioner 09/20/24
== END 2025-08-01 12:02 | disposition home or self-care (01) ==
LOC: HO.HPS 11:12
PROVIDERS: PCP Physician Assistant Medical; Visit Provider Hospitalist
DX: R05.3 Chronic cough (principal); J31.0 Chronic rhinitis; K44.9 Diaphragmatic hernia without obstruction or gangrene; R06.09 Other forms of dyspnea; R91.1 Solitary pulmonary nodule
CPT/HCPCS: 99214; G2211

== ENCOUNTER → 2025-08-01 11:11 | Outpatient (BNVA) | payer MEDICARE, OTHER, SELFPAY | PROVIDERS: PCP Physician Assistant Medical; Visit Provider Hospitalist | DX: R91.1 Solitary pulmonary nodule (principal); R06.09 Other forms of dyspnea; R05.3 Chronic cough; J44.9 Chronic obstructive pulmonary disease, unspecified; J31.0 Chronic rhinitis; M06.9 Rheumatoid arthritis, unspecified | CPT/HCPCS: 99212 ==